=== PATIENT | female | born 1955 | race Asian ===

== ENCOUNTER 2016-08-22 14:09 | Emergency (ER) | payer OTHER ==
[~2016-08-22] VITALS: Wt 74.0 kg
[~2016-08-22 14:09] MED LIST: ASPI-664 PO; ATEN50TA PO; DICY20TA59 PO; HYD25 PO; LOSA50TA6 PO; METF1000 PO
[2016-08-22] MEDS ORDERED: SODIUM CHLORIDE 0.9% 1L BAG IV* STA (19:18)
[2016-08-22] MEDS ORDERED: ACETAMINOPHEN 325 MG TAB PO STA (19:18)
[2016-08-22] MEDS ORDERED: VANCOMYCIN 1 GM (PMX) 250 ML IVPB SCH (19:30)
[2016-08-22] MEDS ORDERED: PIPER-TAZO 3.375 GM IV (PMX) 100 ML IVPB ONE (19:30)
--- NOTE | 2016-08-22 19:30 | ERA ---
ER Documentation Chief Complaint Date/Time DATE: 08/22/16 TIME: 19:27 Chief Complaint PRODUCTIVE COUGH X 2 DAYS; CHEMO PT HPI Patient is a 61-year-old female who reports a productive cough for the last 2 days with nausea, vomiting, and diarrhea. She is a prior chemo patient however she has not received chemo since November. Her chemo was for colon cancer. She denies any abdominal pain. She has not been around anyone who has been sick. She has not traveled out of the country. She has not been on any recent antibiotics. She says the cough is productive of a slight yellowish phlegm. She denies any chest pain, swelling of the extremities, sore throat, otalgia, or rhinorrhea. Nothing seems to make this better or worse. She does describe diffuse myalgias with a slight headache as well. She denies any dysuria, hematuria, flank, or back pain. Denies any abnormal bleeding, bruises or rashes. And the remainder review systems are negative. ROS All systems reviewed and are negative except as per history of present illness. Medications Home Meds Reported Medications Dicyclomine Hcl* (Bentyl*) 20 Mg Tablet, 20 MG PO QID Y for PAIN, TAB 01/26/16 Hydrochlorothiazide* (Hydrochlorothiazide*) 25 Mg Tab, 25 MG PO DAILY, #30 TAB 01/26/16 Losartan Potassium* (Losartan Potassium*) 50 Mg Tablet, 50 MG PO DAILY, TAB 03/12/15 Metformin Hcl* (Metformin Hcl*) 1,000 Mg Tablet, 1000 MG PO BID, TAB 03/12/15 Atenolol* (Atenolol*) 50 Mg Tablet, 50 MG PO DAILY, TAB 03/12/15 Aspirin* (Aspirin* EC) 81 Mg Tablet.dr, 81 MG PO DAILY, TAB 03/12/15 Allergies Allergies: Coded Allergies: No Known Drug Allergy (Unverified Allergy, Unknown, 01/26/16) ADVERSE REACTION TO A CHEMO DRUG IN PAST- COULD NOT REMEMBER WHICH MEDICATION PMhx/Soc History of Surgery: Yes ( Colon resection 04/2015, oophorectomy, tonsillectomy ) Anesthesia Reaction: No Hx Neurological Disorder: No Hx Respiratory Disorders: No Hx Cardiac Disorders: Yes (HTN ) Hx Psychiatric Problems: No Hx Miscellaneous Medical Probl: Yes (DM) Hx Alcohol Use: No Hx Substance Use: No Hx Tobacco Use: No Smoking Status: Never smoker Physical Exam Vitals Vital Signs Date Time Temp Pulse Resp B/P Pulse Ox O2 Delivery O2 Flow Rate FiO2 08/22/16 21:00 98.5 71 16 106/65 100 Nasal Cannula 2.0 08/22/16 19:27 Nasal Cannula 2 08/22/16 19:10 Nasal Cannula 2.0 08/22/16 18:46 100.7 68 20 100/57 97 Room Air 08/22/16 14:14 98.1 66 18 109/59 96 Physical Exam Const: [] Well-developed well-nourished female sitting on the bed, nontoxic in appearance Head: Atraumatic normocephalic Eyes: Normal Conjunctiva, pupils equally round reactive to light, extraocular motions are intact ENT: Normal External Ears, Nose and Mouth., Posterior pharynx is normal without any erythema, petechia, or purulent Neck: Full range of motion..~ No meningismus. Resp: Clear to auscultation bilaterally, no tachypnea, retractions, or nasal flaring noted, no crackles Cardio: Regular rate and rhythm, no murmurs Abd: Soft, non tender, non distended. Normal bowel sounds no masses, rebound , or guarding Skin: No petechiae or rashes Back: No midline or flank tenderness Ext: No cyanosis, or edema, no calf pain Neur: Awake and alert, oriented 3 with a GCS of 15 and nonfocal Psych: Normal Mood and Affect Result Diagram: 08/22/16192408/22/161934 Results 24 hrs Laboratory Tests Test 08/22/16 19:23 08/22/16 19:25 08/22/16 19:35 08/22/16 20:09 Activated Partial Thromboplast Time 29.1Sec INR International Normalized Ratio 0.90 Prothrombin Time 12.1Sec Prothrombin Time Ratio 0.9 Basophils # 0.010^3/ul Basophils % 0.4% Eosinophils # 0.110^3/ul Eosinophils % 0.7% Hematocrit 46.1% Hemoglobin 15.1g/dl Lymphocytes # 2.210^3/ul Lymphocytes % 31.4% Mean Corpuscular Hemoglobin 30.5pg Mean Corpuscular Hemoglobin Concent 32.8g/dl Mean Corpuscular Volume 93.1fl Mean Platelet Volume 9.7fl Monocytes # 1.010^3/ul Monocytes % 13.4% Neutrophils # 3.810^3/ul Neutrophils % 53.5% Nucleated Red Blood Cells # 0.010^3/ul Nucleated Red Blood Cells % 0.0/100WBC Platelet Count 28573^3/UL Red Blood Count 4.9510^6/ul Red Cell Distribution Width 12.5% White Blood Count 7.110^3/ul Alanine Aminotransferase (ALT/SGPT) 66IU/L Albumin 3.8g/dl Albumin/Globulin Ratio 0.97 Alkaline Phosphatase 61IU/L Anion Gap 20 Aspartate Amino Transf (AST/SGOT) 152IU/L Blood Urea Nitrogen 29mg/dl Calcium Level 9.5mg/dl Carbon Dioxide Level 28mmol/L Chloride Level 97mmol/L Creatinine 1.19mg/dl Direct Bilirubin 0.00mg/dl Globulin 3.90g/dl Glucose Level 125mg/dl Indirect Bilirubin 0.3mg/dl Lactic Acid Level 2.1mmol/L Potassium Level 3.3mmol/L Sodium Level 142mmol/L Total Bilirubin 0.3mg/dl Total Protein 7.7g/dl Troponin I < 0.012ng/ml Urine Bacteria FEW Urine Bilirubin 1+ Urine Calcium Oxalate Crystals FEW Urine Clarity CLOUDY Urine Color YELLOW Urine Glucose NEGATIVE% Urine Hemoglobin NEGATIVE Urine Hyaline Casts MODERATE Urine Ictotest POSITIVE Urine Ketones TRACE Urine Leukocyte Esterase NEGATIVE Urine Microscopic RBC 0-2/HPF Urine Microscopic WBC 0-2/HPF Urine Nitrite NEGATIVE Urine Renal Epithelial Cells MODERATE Urine Specific [place] 1.025 Urine Squamous Epithelial Cells FEW Urine Total Protein TRACE Urine Urobilinogen 0.2 E.U./dL Urine pH 5.5 Current Medications Medications (Trade) Dose Ordered Sig/Ninfa Route PRN Reason Start Time Stop Time Status Last Admin Dose Admin Sodium Chloride (NS) 2,290 ml BOLUS OVER 2 HOURS STAT IV* 08/22/16 19:18 08/22/16 19:21 DC 08/22/16 19:53 Acetaminophen 650 mg 650 mg ONCE STAT PO 08/22/16 19:18 08/22/16 19:21 DC 08/22/16 19:54 Vancomycin HCl 250 ml @ 125 mls/hr ONCE IVPB 08/22/16 19:30 08/22/16 21:29 DC 08/22/16 21:42 Piperacillin Sod/ Tazobactam Sod (Zosyn 3.375gm/ 100 ml (Pmx)) 100 ml @ 200 mls/hr ONCE ONCE IVPB 08/22/16 19:30 08/22/16 19:59 DC 08/22/16 19:54 Procedures/MDM Differential includes but is not limited to febrile illness, pneumonia, bronchitis, viral syndrome, influenza, myalgia EKG: Rate/Rhythm: Normal Sinus Rhythm at 60 bpm without any evidence for acute ischemia, no old EKG available for comparison QRS, ST, T-waves: No changes consistent w/ acute ischemia Impression: No evidence of ischemia or arrhythmia Chest x-ray does not reveal any acute cardiopulmonary process Influenza screen is negative 20-24: Patient is hemodynamically stable. Fever has resolved. White count is normal. Lactic acid level is negative. It appears she is stable for discharge home with outpatient follow-up with her primary care physician tomorrow. Departure Diagnosis: Primary Impression: Fever Qualified Code: R50.9 - Fever, unspecified fever cause Additional Impressions: Viral syndrome Vomiting Qualified Code: R11.2 - Non-intractable vomiting with nausea, unspecified vomiting type Diarrhea Qualified Code: R19.7 - Diarrhea, unspecified type Condition: Stable Patient Instructions: Fever Control (Adult), Nausea and Vomiting-Adult, Viral Syndrome (Adult) Additional Instructions: Motrin as needed for fever and body aches. Please encourage fluids. I would start with a clear liquid diet and then move onto a bland diet as tolerated. Please follow-up with your primary care physician tomorrow for recheck. Return to the emergency department immediately for any new or worsening symptoms. CECILIA STILES Aug 22, 2016 19:30
[2016-08-22 19:50] LABS: ADD SCAN DIFF NO
[2016-08-22 19:51] LABS: INR 0.9; PROTIME 12.1 Sec (12.2-14.2); PT RATIO 0.9
[2016-08-22 19:52] LABS: PARTIAL THROMBOPLASTIN TIME 29.1 Sec (25.0-35.0)
[2016-08-22 19:54] LABS: BASOPHILS % 0.4 % (0.0-2.0); EOSINOPHILS # 0.1 10^3/ul (0.0-0.5); EOSINOPHILS % 0.7 % (0.0-7.0); HEMATOCRIT 46.1 % (37.0-47.0); HEMOGLOBIN 15.1 g/dl (12.0-16.0); LYMPHOCYTES # 2.2 10^3/ul (0.8-2.9); LYMPHOCYTES % 31.4 % (15.0-51.0); MEAN CORPUSCULAR HEMOGLOBIN 30.5 pg (29.0-33.0); MEAN CORPUSCULAR HGB CONC 32.8 g/dl (32.0-37.0); MEAN CORPUSCULAR VOLUME 93.1 fl (82.0-101.0); MEAN PLATELET VOLUME 9.7 fl (7.4-10.4); MONOCYTES % 13.4 % (0.0-11.0); NEUTROPHIL # 3.8 10^3/ul (1.6-7.5); NEUTROPHILS % 53.5 % (39.0-77.0); PLATELET COUNT 210 10^3/UL (140-415); RED BLOOD COUNT 4.95 10^6/ul (4.20-5.40); RED CELL DISTRIBUTION WIDTH 12.5 % (11.5-14.5); WHITE BLOOD COUNT 7.1 10^3/ul (4.8-10.8)
--- NOTE | 2016-08-22 20:03 | RADRPT ---
PROCEDURE: XR Chest. CLINICAL INDICATION: Cough. Sepsis. TECHNIQUE: Single frontal view. COMPARISON: 01/26/2016. FINDINGS: The lungs are clear. The nasogastric tube has been removed. The heart size is normal. There is calcification in the aorta consistent with atherosclerosis. There is no pleural effusion. There is no pneumothorax. IMPRESSION: 1. Nasogastric tube removed. 2. Clear lungs. 3. Atherosclerosis. RPTAT: QQ .Artemio Niño MD, MD Date Time Electronically viewed and signed by .Artemio Niño MD, MD on 08/22/2016 20:02 .R/
[2016-08-22 20:04] LABS: ALBUMIN 3.8 g/dl (3.3-4.9); CHLORIDE 97 mmol/L (97-110); POTASSIUM 3.3 mmol/L (3.5-5.1); SODIUM 142 mmol/L (135-144)
[2016-08-22 20:06] LABS: BILIRUBIN,INDIRECT 0.3 mg/dl (0-1.1); BILIRUBIN,TOTAL 0.3 mg/dl (0.2-1.3); CREATININE 1.19 mg/dl (0.44-1.00)
[2016-08-22 20:07] LABS: ALANINE AMINOTRANSFERASE 66 IU/L (13-69); ALBUMIN/GLOBULIN RATIO 0.97; ALKALINE PHOSPHATASE 61 IU/L (42-121); ANION GAP 20 (8-16); ASPARTATE AMINO TRANSFERASE 152 IU/L (15-46); BLOOD UREA NITROGEN 29 mg/dl (7-20); CARBON DIOXIDE 28 mmol/L (21-31); GLUCOSE 125 mg/dl (70-220); TOTAL PROTEIN 7.7 g/dl (6.1-8.1)
[2016-08-22 20:08] LABS: CALCIUM 9.5 mg/dl (8.4-10.2)
[2016-08-22 20:28] LABS: ADD UMIC YES; URINE BILIRUBIN (Dip) 1+ (NEGATIVE); URINE BLOOD (Dip) NEGATIVE (NEGATIVE); URINE COLOR YELLOW (YELLOW); URINE GLUCOSE (Dip) NEGATIVE (NEGATIVE); URINE KETONES (Dip) TRACE (NEGATIVE); URINE LEUKOCYTE ESTERASE (Dip) NEGATIVE (NEGATIVE); URINE NITRITE (Dip) NEGATIVE (NEGATIVE); URINE TOTAL PROTEIN (Dip) TRACE (NEGATIVE); URINE UROBILINOGEN (Dip) 0.2 E.U./dL (0.1-1.0)
[2016-08-22 20:38] LABS: TROPONIN-I < 0.012 ng/ml (0.00-0.12)
[2016-08-22 20:52] LABS: BACTERIA,URINE FEW
[2016-08-22 20:53] LABS: RENAL EPITHELIAL CELLS,URINE MODERATE; SQUAMOUS EPITHELIAL CELL,UR FEW; URINE RBCS 0-2 /HPF (0)
[2016-08-22 20:54] LABS: ICTOTEST POSITIVE (NEGATIVE)
[2016-08-22 21:00] VITALS: TEMP 98.5
[2016-08-22] MEDS ORDERED: ONDA4TAB8 PO (22:28)
[2016-08-22 22:37] VITALS: BP 126/58; PULSE 67; RESP 16
== END 2016-08-22 22:38 | disposition home or self-care (01) ==
LOC: E/R 14:09
DX: R50.9 Fever, unspecified (principal); R11.2 Nausea with vomiting, unspecified; R19.7 Diarrhea, unspecified; R06.02 Shortness of breath; E11.9 Type 2 diabetes mellitus without complications; I10 Essential (primary) hypertension; B34.9 Viral infection, unspecified; Z85.038 Personal history of other malignant neoplasm of large intestine; Z79.82 Long term (current) use of aspirin
CPT/HCPCS: 36415; 71010; 80053; 81001; 83605; 84484; 85025; 85610; 85730; 87040; 87086; 87400; 93005; 96374; 96375; J2543; J3370; J7030; Z7502; Z7610; 81003

== ENCOUNTER 2016-12-30 13:19 | Inpatient (IN) | payer OTHER ==
[~2016-12-30] VITALS: Ht 154.9 cm; Wt 80.0 kg
[~2016-12-30 13:19] MED LIST changes: +ONDA4TAB8 PO
[2016-12-30] MEDS ORDERED: NITROGLYCERIN 2% 1 GM OINT PKT TD STA (13:31)
[2016-12-30] MEDS ORDERED: ASPIRIN 81 MG TAB PO STA (13:31)
[2016-12-30 13:53] LABS: BASOPHIL # 0.1 10^3/ul (0.0-0.1); BASOPHILS % 0.8 % (0.0-2.0); EOSINOPHILS # 0.3 10^3/ul (0.0-0.5); EOSINOPHILS % 3.4 % (0.0-7.0); HEMATOCRIT 40.7 % (37.0-47.0); LYMPHOCYTES # 3.2 10^3/ul (0.8-2.9); MEAN CORPUSCULAR HGB CONC 34.4 g/dl (32.0-37.0); MEAN CORPUSCULAR VOLUME 93.1 fl (82.0-101.0); MEAN PLATELET VOLUME 9.8 fl (7.4-10.4); MONOCYTES % 11.6 % (0.0-11.0); NEUTROPHIL # 4.1 10^3/ul (1.6-7.5); PLATELET COUNT 239 10^3/UL (140-415); RED BLOOD COUNT 4.37 10^6/ul (4.20-5.40); WHITE BLOOD COUNT 8.7 10^3/ul (4.8-10.8)
[2016-12-30] MEDS ORDERED: NITROGLYCERIN (SL) 0.4 MG TAB SL PRN ×2 (14:00→16:30)
[2016-12-30 14:13] LABS: INR 0.96; PROTIME 12.8 Sec (12.2-14.2)
[2016-12-30 14:14] LABS: PARTIAL THROMBOPLASTIN TIME 28.6 Sec (25.0-35.0)
[2016-12-30 14:16] LABS: ANION GAP 20 (8-16); BLOOD UREA NITROGEN 24 mg/dl (7-20); CALCIUM 10.3 mg/dl (8.4-10.2); CARBON DIOXIDE 29 mmol/L (21-31); CHLORIDE 100 mmol/L (97-110); CREATINE KINASE 67 IU/L (23-200); CREATININE 0.81 mg/dl (0.44-1.00); GLUCOSE 183 mg/dl (70-220); POTASSIUM 3.7 mmol/L (3.5-5.1); SODIUM 145 mmol/L (135-144)
--- NOTE | 2016-12-30 14:19 | RADRPT ---
PROCEDURE: Chest Radiograph. CLINICAL INDICATION: Chest pain TECHNIQUE: Single frontal chest radiograph. COMPARISON: Chest radiograph 08/22/2016 FINDINGS: Heart size is within normal limits. Atherosclerotic calcifications are present. No infiltrate or effusion is seen. The bones are intact. IMPRESSION: 1. No evidence of acute cardiopulmonary disease. 2. Atherosclerotic vascular disease. RPTAT: KK .Aurelio Anglin MD, MD Date Time Electronically viewed and signed by .Aurelio Anglin MD, MD on 12/30/2016 14:19 .B/
[2016-12-30] MEDS ORDERED: ATEN100T PO (14:26)
[2016-12-30 14:28] LABS: CK-MB 0.82 ng/ml (0.0-2.4)
[2016-12-30 14:30] LABS: TROPONIN-I < 0.012 ng/ml (0.00-0.12)
[2016-12-30] MEDS ORDERED: ONDANSETRON 4 MG INJ IV PRN ×2 (15:30→16:30)
[2016-12-30] MEDS ORDERED: ACETAMINOPHEN 325 MG TAB PO PRN ×2 (15:30→16:30)
--- NOTE | 2016-12-30 16:27 | ERA ---
ER Documentation Chief Complaint Date/Time DATE: 12/30/16 TIME: 16:25 Chief Complaint CHEST PAIN X 1 HOUR , LT SIDE NECK PAIN X 3 DAYS , HEADCAHE HPI Patient is a 61-year-old female with coronary disease, hypertension, CHF, and diabetes who presents with chest pain. She started with chest pain 1 hour prior. She has chest pain with movement and palpation and nitroglycerin did help a little. She has left-sided ear pain as well. She said the pain is constant. She says that her vice president of finance is Dr. Colin who is planning to do a cardiac catheterization within a few days but her chest pain started so she came to the emergency department. ROS All systems reviewed and are negative except as per history of present illness. Medications Home Meds Reported Medications Atenolol* (Atenolol*) 100 Mg Tablet, 100 MG PO DAILY, #30 TAB 12/30/16 Dicyclomine Hcl* (Bentyl*) 20 Mg Tablet, 20 MG PO QID Y for PAIN, TAB 01/26/16 Hydrochlorothiazide* (Hydrochlorothiazide*) 25 Mg Tab, 25 MG PO DAILY, #30 TAB 01/26/16 Losartan Potassium* (Losartan Potassium*) 50 Mg Tablet, 50 MG PO DAILY, TAB 03/12/15 Metformin Hcl* (Metformin Hcl*) 1,000 Mg Tablet, 1000 MG PO BID, TAB 03/12/15 Aspirin* (Aspirin* EC) 81 Mg Tablet.dr, 81 MG PO DAILY, TAB 03/12/15 Discontinued Reported Medications Atenolol* (Atenolol*) 50 Mg Tablet, 50 MG PO DAILY, TAB 03/12/15 Discontinued Scripts Ondansetron Hcl* (Zofran*) 4 Mg Tablet, 4 MG PO Q8H Y for NAUSEA AND/OR VOMITING , #20 TAB 0 Refills Prov:CECILIA STILES 08/22/16 Allergies Allergies: Coded Allergies: No Known Drug Allergy (Unverified Allergy, Unknown, 12/30/16) ADVERSE REACTION TO A CHEMO DRUG IN PAST- COULD NOT REMEMBER WHICH MEDICATION PMhx/Soc History of Surgery: Yes ( Colon resection 04/2015, oophorectomy, tonsillectomy ) Anesthesia Reaction: No Hx Neurological Disorder: No Hx Respiratory Disorders: No Hx Cardiac Disorders: Yes (HTN ) Hx Psychiatric Problems: No Hx Miscellaneous Medical Probl: Yes (DM) Hx Alcohol Use: No Hx Substance Use: No Hx Tobacco Use: No FmHx Family History: coronary disease Physical Exam Vitals Vital Signs Date Time Temp Pulse Resp B/P Pulse Ox O2 Delivery O2 Flow Rate FiO2 12/30/16 13:21 98.2 71 18 129/66 97 Physical Exam Const: Moderate distress secondary to pain Head: Atraumatic Eyes: Normal Conjunctiva ENT: Normal External Ears, Nose and Mouth. Neck: Full range of motion..~ No meningismus. Resp: Clear to auscultation bilaterally Cardio: Regular rate and rhythm, no murmurs Abd: Soft, non tender, non distended. Normal bowel sounds Skin: No petechiae or rashes Back: No midline or flank tenderness Ext: No cyanosis, or edema Neur: Awake and alert Psych: Normal Mood and Affect Result Diagram: 12/30/16 1345 12/30/16 1345 Results 24 hrs Laboratory Tests Test 12/30/16 13:45 White Blood Count 8.710^3/ul Red Blood Count 4.3710^6/ul Hemoglobin 14.0g/dl Hematocrit 40.7% Mean Corpuscular Volume 93.1fl Mean Corpuscular Hemoglobin 32.0pg Mean Corpuscular Hemoglobin Concent 34.4g/dl Red Cell Distribution Width 12.0% Platelet Count 21226^3/UL Mean Platelet Volume 9.8fl Neutrophils % 47.0% Lymphocytes % 37.0% Monocytes % 11.6% Eosinophils % 3.4% Basophils % 0.8% Nucleated Red Blood Cells % 0.0/100WBC Neutrophils # 4.110^3/ul Lymphocytes # 3.210^3/ul Monocytes # 1.010^3/ul Eosinophils # 0.310^3/ul Basophils # 0.110^3/ul Nucleated Red Blood Cells # 0.010^3/ul Prothrombin Time 12.8Sec Prothrombin Time Ratio 1.0 INR International Normalized Ratio 0.96 Activated Partial Thromboplast Time 28.6Sec Sodium Level 145mmol/L Potassium Level 3.7mmol/L Chloride Level 100mmol/L Carbon Dioxide Level 29mmol/L Anion Gap 20 Blood Urea Nitrogen 24mg/dl Creatinine 0.81mg/dl Glucose Level 183mg/dl Calcium Level 10.3mg/dl Creatine Kinase 67IU/L Creatine Kinase Index 1.2 Creatinine Kinase MB (Mass) 0.82ng/ml Troponin I < 0.012ng/ml Current Medications Medications (Trade) Dose Ordered Sig/Ninfa Route PRN Reason Start Time Stop Time Status Last Admin Dose Admin Aspirin (Aspirin) 162 mg ONCE STAT PO 12/30/16 13:31 12/30/16 13:33 DC 12/30/16 14:07 Nitroglycerin (Nitroglycerin 2% Oint) 1 inch ONCE STAT TD 12/30/16 13:31 12/30/16 13:33 DC 12/30/16 14:08 Nitroglycerin (Nitroglycerin (Sl Tab) 0.4 Mg) 1 tab Q5M UP TO 3 DOSES PRN SL CHEST PAIN 12/30/16 14:00 12/30/16 14:09 Ondansetron HCl (Zofran Inj) 4 mg ER BRIDGE PRN IV NAUSEA AND/OR VOMITING 12/30/16 15:30 12/31/16 15:29 Acetaminophen (Tylenol Tab) 650 mg ER BRIDGE PRN PO MILD PAIN/FEVER 12/30/16 15:30 12/31/16 15:29 IV Flush (NS 3 ml) 3 ml PER PROTOCOL IV 12/30/16 16:30 UNV Ondansetron HCl (Zofran Inj) 4 mg Q6H PRN IV NAUSEA AND/OR VOMITING 12/30/16 16:30 UNV Aspirin (Aspirin) 81 mg DAILY PO 12/31/16 09:00 UNV Nitroglycerin (Nitroglycerin (Sl Tab) 0.4 Mg) 1 tab Q5M PRN SL CHEST PAIN 12/30/16 16:30 UNV Acetaminophen (Tylenol Tab) 650 mg Q6H PRN PO PAIN LEVEL 1-3 OR FEVER 12/30/16 16:30 UNV Acetaminophen/ Hydrocodone Bitart ([place] (5/325)) 1 tab Q6H PRN PO PAIN LEVEL 4-6 12/30/16 16:30 UNV Magnesium Hydroxide (Milk Of Mag) 30 ml DAILY PRN PO CONSTIPATION 12/30/16 16:30 UNV Bisacodyl (Dulcolax) 5 mg DAILY PRN PO CONSTIPATION 12/30/16 16:30 UNV Famotidine (Pepcid) 20 mg Q12 PO 12/30/16 21:00 UNV Enoxaparin Sodium (Lovenox) 40 mg DAILY SC 12/31/16 09:00 UNV Procedures/MDM EKG read by me: Rate/Rhythm: Regular rate and rhythm at a normal rate Intervals: Normal Impression: No evidence of ischemia or arrhythmia Chest x-ray shows no pneumonia or pneumothorax per radiology. Patient is a 61-year-old female with multiple cardiac risk factors who presents with chest pain. I do believe the patient requires admission to the hospital for further evaluation for acute coronary syndrome. I doubt pneumonia, pneumothorax, pulmonary embolism, or aortic dissection. The patient will be admitted to a telemetry bed to the care of Dr. Ewing. Departure Diagnosis: Primary Impression: Chest pain Condition: NISHI Morataya MD Dec 30, 2016 16:27
[2016-12-30] MEDS ORDERED: HYDROCODONE/APAP (5/325) TAB PO PRN (16:30)
[2016-12-30] MEDS ORDERED: NACL 0.9% 3 ML SYG IV SCH (16:30)
[2016-12-30] MEDS ORDERED: BISACODYL (EC) 5 MG TAB PO PRN (16:30)
[2016-12-30] MEDS ORDERED: MAGNESIUM HYDROXIDE 30ML CUP PO PRN (16:30)
--- NOTE | 2016-12-30 16:39 | HP ---
Date/Time of Note Date/Time of Note DATE: 12/30/16 TIME: 16:33 Assessment/Plan VTE Prophylaxis VTE Prophylaxis Intervention: LMWH Assessment/Plan Chief Complaint/Hosp Course 1. Chest pain. Reported positive stress test as outpatient. The patient will be continued on aspirin. Cardiology consult will be obtained. A 2D echocardiogram will be ordered. 2. Headache. Etiology unclear. Will obtain a CT scan to evaluate for any underlying intracranial pathology. 3. Essential hypertension. The patient's home antihypertensives will be resumed. The patient will also be started on PRN antihypertensives for any systolic blood pressure readings greater than 160 mmHg. 4. Type 2 diabetes mellitus. The patient's metformin will be put on hold. The patient will be started on sliding scale insulin along with pre-meal insulin and basal insulin. Hemoglobin A1c will be obtained to evaluate the blood glucose control over the past few weeks. 5. Colon cancer. Status post resection and chemotherapy. Follows up with Dr. Mata as outpatient. 6. Obesity. BMI of 32.3 kg/m. Weight reduction would be advised. Fasting lipid panel will be obtained. Plan: The patient will be admitted to inpatient telemetry floor. The patient will be started on a carbohydrate controlled diet. The patient will be started on DVT prophylaxis and gastrointestinal prophylaxis. The patient will remain a full code. Activities will be as tolerated. The rest of the patient's management will be based on the clinical course, input from consultants, and the results of diagnostic studies. Based on the patient's clinical presentation, she most probably requires at least 2 midnights' stay for further management and evaluation of her clinical presentation. The case and management of this patient was fully discussed with Dr. Ewing. Problems: HPI/ROS Admit Date/Time Admit Date/Time Hx of Present Illness Reason for Admission: Chest Pain. Consultants 1. Aaron Flores MD, Cardiology. This is a 61-year-old [place] female with past medical history of essential hypertension, type 2 diabetes mellitus, colon cancer status post resection and chemotherapy, and obesity who has a strong family history of coronary artery disease. The patient also had a reported positive stress test as outpatient in October 2016. The patient follows up with Dr. Brady as outpatient for her heart problems. The patient started having chest pain the morning on 12/30/2016. The patient verbalized the chest pain as sharp with radiation to the neck with associated diaphoresis and nausea. The patient denied any dyspnea or orthopnea. The patient denied any calf pain or bilateral lower extremity edema. Patient denied any fevers, chills, cough, abdominal pain, diarrhea, dysuria, or hematuria. The patient denied any recent long travels. The patient verbalized that she has been compliant with all her home medications. The patient also complained about left-sided neck pain that has been radiating to the occipital area for the past few days. The patient denied any blurred vision. She denied any focal weakness. The emergency room, the patient underwent atrial lead EKG that showed normal sinus rhythm. The patient's initial troponins were negative. The patient's chest x-ray was negative for any acute cardiopulmonary findings. The patient was treated with oral aspirin and nitroglycerin transdermal patch in the emergency room. ROS Constitutional: fatigue Eyes: no complaints ENT: no complaints Respiratory: no complaints Cardiovascular: chest pain Gastrointestinal: nausea Genitourinary: no complaints Musculoskeletal: no complaints Skin: no complaints Neurologic: headache Endocrine: no complaints Lymphatic: no complaints Psychological: no complaints Immunologic: no complaints PMH/Family/Social Past Medical History Medical History: diabetes, hypertension, other (Colon cancer status post resection and chemotherapy) Past Surgical History Past Surgical Hx: bowel resection, other (Tonsillectomy) Family History Significant Family History: heart disease (To have her sons from heart disease. Mother had heart disease.) Social History The patient lives at home. Alcohol Use: none Smoking Status: Never smoker Drug Use: none Exam/Review of Systems Vital Signs Vitals Vital Signs Date Time Temp Pulse Resp B/P Pulse Ox O2 Delivery O2 Flow Rate FiO2 12/30/16 13:21 98.2 71 18 129/66 97 Exam Exam General: Obese 61 year-old female lying in bed in no apparent distress. HEENT: Normocephalic, atraumatic. Eyes: Anicteric sclerae, conjunctivae clear. ENT: Nasal septum midline, oral mucosa moist. Neck supple, no JVD noticed. Respiratory: Bilaterally clear breath sounds. No use of accessory muscles of respiration. No adventitious breath sounds. Cardiovascular: S1, S2 heard. No murmurs or gallops. Abdomen: Soft, nontender, and nondistended. Bowel sounds positive in all 4 quadrants. Genitourinary: Deferred. Extremities: No cyanosis, no clubbing, no edema. Peripheral pulses palpable. Neurologic: Cranial nerves II through XII grossly intact. The patient is awake, alert, and oriented. Skin: Normal skin turgor. No skin rashes. Labs Result Diagram: 12/30/16 1345 12/30/16 1345 Medications Medications Current Medications Ondansetron HCl (Zofran Inj) 4 mg Q6H PRN IV NAUSEA AND/OR VOMITING; Start at 16:30; Status UNV Aspirin (Aspirin) 81 mg DAILY PO ; Start 12/31/16 at 09:00; Status UNV Nitroglycerin (Nitroglycerin (Sl Tab) 0.4 Mg) 1 tab Q5M PRN SL CHEST PAIN; Start 12/30/16 at 16:30; Status UNV Acetaminophen (Tylenol Tab) 650 mg Q6H PRN PO PAIN LEVEL 1-3 OR FEVER; Start at 16:30; Status UNV Acetaminophen/ Hydrocodone Bitart ([place] (5/325)) 1 tab Q6H PRN PO PAIN LEVEL 4 -6; Start 12/30/16 at 16:30; Status UNV Magnesium Hydroxide (Milk Of Mag) 30 ml DAILY PRN PO CONSTIPATION; Start at 16:30; Status UNV Bisacodyl (Dulcolax) 5 mg DAILY PRN PO CONSTIPATION; Start 12/30/16 at 16:30; Status UNV Famotidine (Pepcid) 20 mg Q12 PO ; Start 12/30/16 at 21:00; Status UNV Enoxaparin Sodium (Lovenox) 40 mg DAILY SC ; Start 12/31/16 at 09:00; Status UNV Atenolol (Tenormin) 100 mg DAILY PO ; Start 12/31/16 at 09:00; Status UNV Hydrochlorothiazide (Hydrochlorothiazide) 25 mg DAILY PO ; Start 12/31/16 at 09: 00; Status UNV Losartan Potassium (Cozaar) 50 mg DAILY PO ; Start 12/31/16 at 09:00; Status UNV Miscellaneous Information (* Miscellaneous Pharmacy Order) Discontinue current oral sulfonylur... ONCE ONCE XX ; Start 12/30/16 at 16:30; Stop 12/30/16 at 16: 31; Status UNV Diagnostic Test (Pha) (Accu-Chek) 1 XX ; Start 12/31/16 at 02:00; Status UNV Insulin Glargine (Lantus) 16 unit DAILY@08 SC ; Start 12/31/16 at 08:00; Status UNV Miscellaneous Information (* Miscellaneous Pharmacy Order) HYPOGLYCEMIA PROTOCOL w... ONCE ONCE XX ; Start 12/30/16 at 16:30; Stop 12/30/16 at 16:31; Status UNV Miscellaneous Information (* Miscellaneous Pharmacy Order) Discontinue all previ... ONCE ONCE XX ; Start 12/30/16 at 16:30; Stop 12/30/16 at 16:31; Status UNV Procedures Procedures CXR IMPRESSION: 1. No evidence of acute cardiopulmonary disease. 2. Atherosclerotic vascular disease. JUAN JOSE CHOU NP Dec 30, 2016 16:39
[2016-12-30] MEDS ORDERED: hydrALAzine 20 MG INJ IV PRN (17:00)
--- NOTE | 2016-12-30 17:44 | RADRPT ---
PROCEDURE: CT brain without contrast CLINICAL INDICATION: Headache with radiation TECHNIQUE: CT of the brain without contrast was performed on a multidetector CT scanner, with multi planar reformats. One or more of the following dose reduction techniques were used: Automated expos ure control, adjustment in mA and / or kV according to patient size, use of iterative reconstructive technique. CTDIvol = 45 mGy; DLP = 630 mGy-cm. COMPARISON: MRI brain 06/01/2015 FINDINGS: No acute intracranial hemorrhage is identified. No extra-axial fluid collection is seen. The ventricles and sulci are mildly enlarged compatible with volume loss. There is a cluster of small cystic foci in the medial right cerebellum next to the fourth ventricle and adjacent right middle cerebellar peduncle, and small cystic foci in the medial right temporal/in ferior basal ganglia region. These are better characterized on the prior MRI with benign cystic rajni earances and do not appear significantly changed. The cystic foci in the right cerebellar/middle ce rebellar peduncle region are most likely dilated perivascular spaces. The cystic foci at the right temporal/inferior basal ganglia region may be choroid fissure cysts and / or dilated perivascular s paces. There is no significant mass effect and no midline shift is identified. Osseous structures are unremarkable. Mastoid air cells and imaged paranasal sinuses grossly clear. IMPRESSION: 1. No evidence of acute intracranial pathology. 2. Small cystic foci in the medial right cerebellum / right middle cerebellar peduncle, without sig nificant change since the prior MRI from 06/01/2015, most likely dilated perivascular spaces. 3. Small cystic foci at the medial right temporal/inferior basal ganglia region, also without signi ficant change, which may be choroid fissure cysts and/or dilated perivascular spaces. 4. Mild volume loss. RPTAT: VV .Moose Hernandez MD, Date Time Electronically viewed and signed by .Moose Hernandez MD, on 12/30/2016 17:44 .O/
[2016-12-30 19:15] VITALS: Ht 154.9 cm; Wt 80.0 kg
[2016-12-30 20:27] VITALS: BP 130/60; RESP 18
[2016-12-30 20:33] VITALS: PULSE 63
[2016-12-30] MEDS: INSULIN ASPART [NOVOLOG] 3 ML PEN SC SCH (20:36)
[2016-12-30] MEDS: FAMOTIDINE 20 MG TAB PO SCH (20:36)
--- NOTE | 2016-12-30 22:58 | CONS ---
Date/Time of Note Date/Time of Note DATE: 12/30/16 TIME: 22:58 Consultation Date/Type/Reason Admit Date/Time Eyes: no complaints ENT: no complaints Respiratory: no complaints Cardiovascular: chest pain Gastrointestinal: nausea Genitourinary: no complaints Musculoskeletal: no complaints Skin: no complaints Neurologic: headache Lymphatic: no complaints Psychological: no complaints Immunologic: no complaints Past Medical History Medical History: diabetes, hypertension, other (Colon cancer status post resection and chemotherapy) Past Surgical History Past Surgical Hx: bowel resection, other (Tonsillectomy) Social History Alcohol Use: none Smoking Status: Never smoker Drug Use: none Exam/Review of Systems Vital Signs Vitals Vital Signs Date Time Temp Pulse Resp B/P Pulse Ox O2 Delivery O2 Flow Rate FiO2 12/30/16 20:33 63 12/30/16 20:27 97.3 18 130/60 95 12/30/16 18:54 Room Air 12/30/16 16:34 2 Results Result Diagram: 12/30/16 1345 12/30/16 1345 Results 24 hrs Laboratory Tests Test 12/30/16 13:45 12/30/16 20:35 White Blood Count 8.7 # Red Blood Count 4.37 Hemoglobin 14.0 Hematocrit 40.7 Mean Corpuscular Volume 93.1 Mean Corpuscular Hemoglobin 32.0 Mean Corpuscular Hemoglobin Concent 34.4 Red Cell Distribution Width 12.0 Platelet Count 239 Mean Platelet Volume 9.8 Neutrophils % 47.0 Lymphocytes % 37.0 Monocytes % 11.6 H Eosinophils % 3.4 Basophils % 0.8 Nucleated Red Blood Cells % 0.0 Neutrophils # 4.1 Lymphocytes # 3.2 H Monocytes # 1.0 H Eosinophils # 0.3 Basophils # 0.1 Nucleated Red Blood Cells # 0.0 Prothrombin Time 12.8 Prothrombin Time Ratio 1.0 INR International Normalized Ratio 0.96 Activated Partial Thromboplast Time 28.6 Sodium Level 145 H Potassium Level 3.7 Chloride Level 100 Carbon Dioxide Level 29 Anion Gap 20 H Blood Urea Nitrogen 24 H Creatinine 0.81 Glucose Level 183 Hemoglobin A1c 7.7 H Calcium Level 10.3 H Creatine Kinase 67 Creatine Kinase Index 1.2 Creatinine Kinase MB (Mass) 0.82 Troponin I < 0.012 Vitamin D 1,25-Dihydroxy 44.7 Thyroid Stimulating Hormone (TSH) 6.160 H Free Thyroxine 1.08 Bedside Glucose 170 Medications Medications Current Medications Ondansetron HCl (Zofran Inj) 4 mg Q6H PRN IV NAUSEA AND/OR VOMITING; Start at 16:30 Aspirin (Aspirin) 81 mg DAILY PO ; Start 12/31/16 at 09:00 Nitroglycerin (Nitroglycerin (Sl Tab) 0.4 Mg) 1 tab Q5M PRN SL CHEST PAIN; Start 12/30/16 at 16:30 Acetaminophen (Tylenol Tab) 650 mg Q6H PRN PO PAIN LEVEL 1-3 OR FEVER; Start at 16:30 Acetaminophen/ Hydrocodone Bitart ([place] (5/325)) 1 tab Q6H PRN PO PAIN LEVEL 4 -6; Start 12/30/16 at 16:30 Magnesium Hydroxide (Milk Of Mag) 30 ml DAILY PRN PO CONSTIPATION; Start at 16:30 Bisacodyl (Dulcolax) 5 mg DAILY PRN PO CONSTIPATION; Start 12/30/16 at 16:30 Famotidine (Pepcid) 20 mg Q12 PO Last administered on 12/30/16t 20:36; Admin Dose 20 MG; Start 12/30/16 at 21:00 Enoxaparin Sodium (Lovenox) 40 mg DAILY SC ; Start 12/31/16 at 09:00 Atenolol (Tenormin) 100 mg DAILY PO ; Start 12/31/16 at 09:00 Hydrochlorothiazide (Hydrochlorothiazide) 25 mg DAILY PO ; Start 12/31/16 at 09: 00 Losartan Potassium (Cozaar) 50 mg DAILY PO ; Start 12/31/16 at 09:00 Diagnostic Test (Pha) (Accu-Chek) 1 ea 02 XX ; Start 12/31/16 at 02:00 Insulin Glargine (Lantus) 16 unit DAILY@08 SC ; Start 12/31/16 at 08:00 Hydralazine HCl (Apresoline) 10 mg Q6H PRN IV SBP>160; Start 12/30/16 at 17:00 DORON AKHTAR MD Dec 30, 2016 22:58
[2016-12-31] VITALS (12 sets, daily range): BP systolic 110–127; BP diastolic 54–74; PULSE 55–79; RESP 16–18
[2016-12-31] MEDS: ACCU-CHEK XX SCH (02:00)
[2016-12-31 02:22] LABS: CREATINE KINASE 48 IU/L (23-200)
[2016-12-31 02:36] LABS: CK-MB 0.69 ng/ml (0.0-2.4); TROPONIN-I < 0.012 ng/ml (0.00-0.12)
[2016-12-31 07:41] LABS: BASOPHIL # 0.1 10^3/ul (0.0-0.1); BASOPHILS % 1.1 % (0.0-2.0); EOSINOPHILS # 0.3 10^3/ul (0.0-0.5); EOSINOPHILS % 3.8 % (0.0-7.0); HEMATOCRIT 39.2 % (37.0-47.0); HEMOGLOBIN 13.2 g/dl (12.0-16.0); LYMPHOCYTES # 2.8 10^3/ul (0.8-2.9); LYMPHOCYTES % 37.2 % (15.0-51.0); MEAN CORPUSCULAR HEMOGLOBIN 31.3 pg (29.0-33.0); MEAN CORPUSCULAR HGB CONC 33.7 g/dl (32.0-37.0); MEAN CORPUSCULAR VOLUME 92.9 fl (82.0-101.0); MEAN PLATELET VOLUME 10.1 fl (7.4-10.4); MONOCYTE # 0.8 10^3/ul (0.3-0.9); MONOCYTES % 10.7 % (0.0-11.0); NEUTROPHIL # 3.5 10^3/ul (1.6-7.5); NEUTROPHILS % 47.1 % (39.0-77.0); PLATELET COUNT 218 10^3/UL (140-415); RED BLOOD COUNT 4.22 10^6/ul (4.20-5.40); RED CELL DISTRIBUTION WIDTH 12.1 % (11.5-14.5); WHITE BLOOD COUNT 7.4 10^3/ul (4.8-10.8)
[2016-12-31] MEDS: ASPIRIN 81 MG TAB PO SCH (08:55)
[2016-12-31] MEDS: HYDROCHLOROTHIAZIDE 25 MG TAB PO SCH (08:55)
[2016-12-31] MEDS: FAMOTIDINE 20 MG TAB PO SCH ×2 (08:55→21:03)
[2016-12-31] MEDS: ATENOLOL 100 MG TAB PO SCH (08:55)
[2016-12-31] MEDS: LOSARTAN 50 MG TAB PO SCH (08:56)
[2016-12-31] MEDS: ENOXAPARIN 40 MG/0.4 ML SYG SC SCH (08:57)
[2016-12-31 09:06] LABS: CK-MB 0.66 ng/ml (0.0-2.4); CREATINE KINASE 66 IU/L (23-200); MAGNESIUM 1.7 mg/dl (1.7-2.5); PHOSPHORUS 4.5 mg/dl (2.5-4.9)
[2016-12-31 09:10] LABS: TROPONIN-I < 0.012 ng/ml (0.00-0.12)
[2016-12-31 09:15] LABS: ALBUMIN 3.8 g/dl (3.3-4.9); ALBUMIN/GLOBULIN RATIO 1.26; BILIRUBIN,INDIRECT 0.6 mg/dl (0-1.1); BILIRUBIN,TOTAL 0.6 mg/dl (0.2-1.3); CALCIUM 9.3 mg/dl (8.4-10.2); CREATININE 0.87 mg/dl (0.44-1.00); POTASSIUM 4.1 mmol/L (3.5-5.1); TOTAL PROTEIN 6.8 g/dl (6.1-8.1)
[2016-12-31] MEDS: INSULIN GLARGINE [LANtus] 3 ML PEN SC SCH (09:20)
[2016-12-31] MEDS: INSULIN ASPART [NOVOLOG] 3 ML PEN SC SCH ×7 (09:21→21:03)
[2016-12-31 10:19] LABS: CHOL/HDL RATIO 2.9 RATIO
--- NOTE | 2016-12-31 13:39 | PN ---
Date/Time of Note Date/Time of Note DATE: 12/31/16 TIME: 13:34 Assessment/Plan VTE Prophylaxis VTE Prophylaxis Intervention: LMWH Lines/Catheters IV C[facility]ter Type (from [facility]): Saline Lock Assessment/Plan Chief Complaint/Hosp Course 1. Chest pain. Reported positive stress test as outpatient. The patient will be continued on aspirin. Pending cardiology evaluation. Pending 2D echocardiogram results. 2. Headache. Etiology unclear. CT scan of the brain negative for any acute intracranial pathology. 3. Essential hypertension. Continue antihypertensives including PRN antihypertensives for any systolic blood pressure readings greater than 160 mmHg. 4. Type 2 diabetes mellitus. Hemoglobin A1c 7.7. Continue sliding scale insulin along with pre-meal insulin basal insulin. 5. Colon cancer. Status post resection and chemotherapy. Follows up with Dr. Mata as outpatient. 6. Obesity. BMI of 32.3 kg/m. Weight reduction was advised. 7. Fluids, electrolytes, and nutrition. Carbohydrate controlled, low- cholesterol diet. 8. DVT prophylaxis. Subcutaneous Lovenox. 9. Gastrointestinal prophylaxis. Histamine 2 receptor blockers. 10. Plan. Continue current management. Await cardiology evaluation. Case discussed with Dr. Ewing. Problems: Subjective 24 Hr Interval Summary Free Text/Dictation Denies any chest pain now. Exam/Review of Systems Vital Signs Vitals Vital Signs Date Time Temp Pulse Resp B/P Pulse Ox O2 Delivery O2 Flow Rate FiO2 12/31/16 12:00 69 12/31/16 11:56 98.2 18 126/64 97 12/30/16 18:54 Room Air 12/30/16 16:34 2 Intake and Output 12/30/16 12/30/16 12/31/16 14:59 22:59 06:59 Intake Total 400 ml Balance 400 ml Exam General: Obese 61 year-old female lying in bed in no apparent distress. HEENT: Normocephalic, atraumatic. Eyes: Anicteric sclerae, conjunctivae clear. ENT: Nasal septum midline, oral mucosa moist. Neck supple, no JVD noticed. Respiratory: Bilaterally clear breath sounds. No use of accessory muscles of respiration. No adventitious breath sounds. Cardiovascular: S1, S2 heard. No murmurs or gallops. Abdomen: Soft, nontender, and nondistended. Bowel sounds positive in all 4 quadrants. Genitourinary: Deferred. Extremities: No cyanosis, no clubbing, no edema. Peripheral pulses palpable. Neurologic: Cranial nerves II through XII grossly intact. The patient is awake, alert, and oriented. Skin: Normal skin turgor. No skin rashes. Results Result Diagram: 12/31/16 0713 12/31/16 0712 Results 24 hrs Laboratory Tests Test 12/30/16 13:45 12/30/16 20:35 12/31/16 01:39 12/31/16 02:04 White Blood Count 8.7 # Red Blood Count 4.37 Hemoglobin 14.0 Hematocrit 40.7 Mean Corpuscular Volume 93.1 Mean Corpuscular Hemoglobin 32.0 Mean Corpuscular Hemoglobin Concent 34.4 Red Cell Distribution Width 12.0 Platelet Count 239 Mean Platelet Volume 9.8 Neutrophils % 47.0 Lymphocytes % 37.0 Monocytes % 11.6 H Eosinophils % 3.4 Basophils % 0.8 Nucleated Red Blood Cells % 0.0 Neutrophils # 4.1 Lymphocytes # 3.2 H Monocytes # 1.0 H Eosinophils # 0.3 Basophils # 0.1 Nucleated Red Blood Cells # 0.0 Prothrombin Time 12.8 Prothrombin Time Ratio 1.0 INR International Normalized Ratio 0.96 Activated Partial Thromboplast Time 28.6 Sodium Level 145 H Potassium Level 3.7 Chloride Level 100 Carbon Dioxide Level 29 Anion Gap 20 H Blood Urea Nitrogen 24 H Creatinine 0.81 Glucose Level 183 Hemoglobin A1c 7.7 H Calcium Level 10.3 H Creatine Kinase 67 48 Creatine Kinase Index 1.2 1.4 Creatinine Kinase MB (Mass) 0.82 0.69 Troponin I < 0.012 < 0.012 Vitamin D 1,25-Dihydroxy 44.7 Thyroid Stimulating Hormone (TSH) 6.160 H Free Thyroxine 1.08 Bedside Glucose 170 201 Test 12/31/16 07:12 12/31/16 07:13 12/31/16 08:26 12/31/16 12:33 Sodium Level 143 Potassium Level 4.1 Chloride Level 101 Carbon Dioxide Level 30 Anion Gap 16 Blood Urea Nitrogen 28 H Creatinine 0.87 Glucose Level 154 Calcium Level 9.3 Phosphorus Level 4.5 Magnesium Level 1.7 Total Bilirubin 0.6 Direct Bilirubin 0.00 Indirect Bilirubin 0.6 Aspartate Amino Transf (AST/SGOT) 88 H Alanine Aminotransferase (ALT/SGPT) 55 Alkaline Phosphatase 38 L Creatine Kinase 66 Creatine Kinase Index 1.0 Creatinine Kinase MB (Mass) 0.66 Troponin I < 0.012 Total Protein 6.8 Albumin 3.8 Globulin 3.00 Albumin/Globulin Ratio 1.26 Triglycerides Level 141 Cholesterol Level 135 LDL Cholesterol, Calculated 61 HDL Cholesterol 46 Cholesterol/HDL Ratio 2.9 White Blood Count 7.4 Red Blood Count 4.22 Hemoglobin 13.2 Hematocrit 39.2 Mean Corpuscular Volume 92.9 Mean Corpuscular Hemoglobin 31.3 Mean Corpuscular Hemoglobin Concent 33.7 Red Cell Distribution Width 12.1 Platelet Count 218 Mean Platelet Volume 10.1 Neutrophils % 47.1 Lymphocytes % 37.2 Monocytes % 10.7 Eosinophils % 3.8 Basophils % 1.1 Nucleated Red Blood Cells % 0.0 Neutrophils # 3.5 Lymphocytes # 2.8 Monocytes # 0.8 Eosinophils # 0.3 Basophils # 0.1 Nucleated Red Blood Cells # 0.0 Bedside Glucose 148 226 H Medications Medications Current Medications Ondansetron HCl (Zofran Inj) 4 mg Q6H PRN IV NAUSEA AND/OR VOMITING; Start at 16:30 Aspirin (Aspirin) 81 mg DAILY PO Last administered on 12/31/16 08:55; Admin Dose 81 MG; Start 12/31/16 at 09:00 Nitroglycerin (Nitroglycerin (Sl Tab) 0.4 Mg) 1 tab Q5M PRN SL CHEST PAIN; Start 12/30/16 at 16:30 Acetaminophen (Tylenol Tab) 650 mg Q6H PRN PO PAIN LEVEL 1-3 OR FEVER; Start at 16:30 Acetaminophen/ Hydrocodone Bitart ([place] (5/325)) 1 tab Q6H PRN PO PAIN LEVEL 4 -6; Start 12/30/16 at 16:30 Magnesium Hydroxide (Milk Of Mag) 30 ml DAILY PRN PO CONSTIPATION; Start at 16:30 Bisacodyl (Dulcolax) 5 mg DAILY PRN PO CONSTIPATION; Start 12/30/16 at 16:30 Famotidine (Pepcid) 20 mg Q12 PO Last administered on 12/31/16 08:55; Admin Dose 20 MG; Start 12/30/16 at 21:00 Enoxaparin Sodium (Lovenox) 40 mg DAILY SC Last administered on 12/31/16 08:57 ; Admin Dose 40 MG; Start 12/31/16 at 09:00 Atenolol (Tenormin) 100 mg DAILY PO Last administered on 12/31/16 08:55; Admin Dose 100 MG; Start 12/31/16 at 09:00 Hydrochlorothiazide (Hydrochlorothiazide) 25 mg DAILY PO Last administered on 08:55; Admin Dose 25 MG; Start 12/31/16 at 09:00 Losartan Potassium (Cozaar) 50 mg DAILY PO Last administered on 12/31/16 08:56 ; Admin Dose 50 MG; Start 12/31/16 at 09:00 Diagnostic Test (Pha) (Accu-Chek) 1 ea 02 XX ; Start 12/31/16 at 02:00 Insulin Glargine (Lantus) 16 unit DAILY@08 SC Last administered on 12/31/16 09 :20; Admin Dose 16 UNIT; Start 12/31/16 at 08:00 Hydralazine HCl (Apresoline) 10 mg Q6H PRN IV SBP>160; Start 12/30/16 at 17:00 JUAN JOSE CHOU NP Dec 31, 2016 13:39
--- NOTE | 2016-12-31 16:24 | RADRPT ---
Echocardiogram Report Patient Name: IBIS BANKS Gender: Female Date: 1955 Study Date: 31-Dec-2016 [employer] Operator: Mary Alice Jack [facility] Location: [id number] Ref. Physician: JUAN JOSE CHOU Quality: Good Procedures: Transthoracic echocardiogram with complete 2D, M-Mode, and doppler examination. Indications: Chest Pain. 2D/M Mode Doppler Measurement Value Normal Ranges Measurement Value Normal Ranges LVIDd 2D 4.4 3.5 - 5.6 cm AV Peak Brian 1.5 m/sec LVIDs 2D 2.2 2.1 - 4.1 cm AV Peak PG 9.0 mmHg FS 2D 49.7 % LVOT Peak Brian 1.1 m/sec LVPWd 2D 0.9 0.6 - 1.1 cm LVOT Peak PG 5.0 mmHg IVSd 2D 1.0 0.6 - 1.1 cm MV E Peak Brian 1.0 m/sec IVS/LVPW 2D 1.1 MV A Peak Brian 0.8 m/sec AoR Diam 2D 2.2 2.0 - 3.7 cm MV E/A 1.3 LA/Ao 2D 1 0 - 1 MV Decel Time 162 msec EDV 2D 83.5 cm3 MV E/A 1.3 ESV 2D 10.6 cm3 TR Peak Brian 2.6 m/sec LA Dimen 2D 3.0 2.3 - 4.0 cm TR Peak PG 27.0 mmHg RVSP 30.0 mmHg Findings Left Ventricle: Normal left ventricular systolic function. Normal left ventricular cavity size. Normal left ventricular wall thickness. Ejection fraction is visually estimated at 60 %. Tissue Doppler/Mitral Doppler indices are consistent with pseudonormalization with mildly elevated left atrial pressure (Stage II diastolic dysfunction). Right Ventricle: Normal right ventricular size. Normal right ventricular systolic function. Left Atrium: The left atrium is normal in size. Right Atrium: The right atrium is normal in size. Mitral Valve: Normal appearance of the mitral valve. Mild mitral annular calcification. There is trace to mild mitral valve regurgitation. Aortic Valve: Normal appearance of the aortic valve. No significant aortic stenosis or insufficiency. Tricuspid Valve: Normal appearance of the tricuspid valve. Estimated peak PA systolic pressure 30 mmHg. There is trace tricuspid regurgitation. Pulmonic Valve: Pulmonic valve not well visualized. Pericardium: Normal pericardium with no significant pericardial effusion. Aorta: Normal aortic root. IVC: Normal size and normal respiratory collapse consistent with normal right atrial pressure. Conclusions 1.Normal left ventricular systolic function. Normal left ventricular cavity size. Normal left ventricular wall thickness. Ejection fraction is visually estimated at 60 %. Tissue Doppler/Mitral Doppler indices are consistent with pseudonormalization with mildly elevated left atrial pressure (Stage II diastolic dysfunction). 2.Normal appearance of the mitral valve. Mild mitral annular calcification. There is trace to mild mitral valve regurgitation. 3.Normal appearance of the tricuspid valve. Estimated peak PA systolic pressure 30 mmHg. There is trace tricuspid regurgitation. Electronically Signed By: Aaron Flores 31-Dec-2016 16:23:20 -0700 Patient Name: IBIS BANKS Study Date: 31-Dec-2016 [id number]
--- NOTE | 2016-12-31 21:03 | CONS ---
Date/Time of Note Date/Time of Note DATE: 12/31/16 TIME: 21:00 Assessment/Plan Assessment/Plan Chief Complaint/Hosp Course Colon cancer. Status post resection and chemotherapy. MAHESH MONITOR CLOSELY Chest pain. Reported positive stress test as outpatient. The patient will be continued on aspirin. Pending cardiology evaluation. Pending 2D echocardiogram results. Headache. Etiology unclear. CT scan of the brain negative for any acute intracranial pathology. Essential hypertension. Continue antihypertensives including PRN antihypertensives for any systolic blood pressure readings greater than 160 mmHg. Type 2 diabetes mellitus. Hemoglobin A1c 7.7. Continue sliding scale insulin along with pre-meal insulin basal insulin. Obesity. BMI of 32.3 kg/m. Weight reduction was advised. Fluids, electrolytes, and nutrition. Carbohydrate controlled, low-cholesterol diet. DVT prophylaxis. Subcutaneous Lovenox. Gastrointestinal prophylaxis. Histamine 2 receptor blockers. Plan. Continue current management. Await cardiology W-UP Problems: Consultation Date/Type/Reason Admit Date/Time Dec 30, 2016 at 15:09 Initial Consult Date 24 HR Interval Summary Free Text/Dictation NO CP Exam/Review of Systems Vital Signs Vitals Vital Signs Date Time Temp Pulse Resp B/P Pulse Ox O2 Delivery O2 Flow Rate FiO2 12/31/16 20:25 97.6 67 16 111/54 96 12/30/16 18:54 Room Air 12/30/16 16:34 2 Intake and Output 12/30/16 12/30/16 12/31/16 15:00 23:00 07:00 Intake Total 400 ml Balance 400 ml Exam Exam General: Obese 61 year-old female lying in bed in no apparent distress. HEENT: Normocephalic, atraumatic. Eyes: Anicteric sclerae, conjunctivae clear. ENT: Nasal septum midline, oral mucosa moist. Neck supple, no JVD noticed. Respiratory: Bilaterally clear breath sounds. No use of accessory muscles of respiration. No adventitious breath sounds. Cardiovascular: S1, S2 heard. No murmurs or gallops. Abdomen: Soft, nontender, and nondistended. Bowel sounds positive in all 4 quadrants. Genitourinary: Deferred. Extremities: No cyanosis, no clubbing, no edema. Peripheral pulses palpable. Neurologic: Cranial nerves II through XII grossly intact. The patient is awake, alert, and oriented. Skin: Normal skin turgor. No skin rashes. Results Result Diagram: 12/31/16 0713 12/31/16 0712 Results 24 hrs Laboratory Tests Test 12/31/16 01:39 12/31/16 02:04 12/31/16 07:12 12/31/16 07:13 Creatine Kinase 48 66 Creatine Kinase Index 1.4 1.0 Creatinine Kinase MB (Mass) 0.69 0.66 Troponin I < 0.012 < 0.012 Bedside Glucose 201 Sodium Level 143 Potassium Level 4.1 Chloride Level 101 Carbon Dioxide Level 30 Anion Gap 16 Blood Urea Nitrogen 28 H Creatinine 0.87 Glucose Level 154 Calcium Level 9.3 Phosphorus Level 4.5 Magnesium Level 1.7 Total Bilirubin 0.6 Direct Bilirubin 0.00 Indirect Bilirubin 0.6 Aspartate Amino Transf (AST/SGOT) 88 H Alanine Aminotransferase (ALT/SGPT) 55 Alkaline Phosphatase 38 L Total Protein 6.8 Albumin 3.8 Globulin 3.00 Albumin/Globulin Ratio 1.26 Triglycerides Level 141 Cholesterol Level 135 LDL Cholesterol, Calculated 61 HDL Cholesterol 46 Cholesterol/HDL Ratio 2.9 White Blood Count 7.4 Red Blood Count 4.22 Hemoglobin 13.2 Hematocrit 39.2 Mean Corpuscular Volume 92.9 Mean Corpuscular Hemoglobin 31.3 Mean Corpuscular Hemoglobin Concent 33.7 Red Cell Distribution Width 12.1 Platelet Count 218 Mean Platelet Volume 10.1 Neutrophils % 47.1 Lymphocytes % 37.2 Monocytes % 10.7 Eosinophils % 3.8 Basophils % 1.1 Nucleated Red Blood Cells % 0.0 Neutrophils # 3.5 Lymphocytes # 2.8 Monocytes # 0.8 Eosinophils # 0.3 Basophils # 0.1 Nucleated Red Blood Cells # 0.0 Test 12/31/16 08:26 12/31/16 12:33 12/31/16 17:22 12/31/16 20:09 Bedside Glucose 148 226 H 187 230 H Medications Medications Current Medications Ondansetron HCl (Zofran Inj) 4 mg Q6H PRN IV NAUSEA AND/OR VOMITING; Start at 16:30 Aspirin (Aspirin) 81 mg DAILY PO Last administered on 12/31/16t 08:55; Admin Dose 81 MG; Start 12/31/16 at 09:00 Nitroglycerin (Nitroglycerin (Sl Tab) 0.4 Mg) 1 tab Q5M PRN SL CHEST PAIN; Start 12/30/16 at 16:30 Acetaminophen (Tylenol Tab) 650 mg Q6H PRN PO PAIN LEVEL 1-3 OR FEVER; Start at 16:30 Acetaminophen/ Hydrocodone Bitart ([place] (5/325)) 1 tab Q6H PRN PO PAIN LEVEL 4 -6; Start 12/30/16 at 16:30 Magnesium Hydroxide (Milk Of Mag) 30 ml DAILY PRN PO CONSTIPATION; Start at 16:30 Bisacodyl (Dulcolax) 5 mg DAILY PRN PO CONSTIPATION; Start 12/30/16 at 16:30 Famotidine (Pepcid) 20 mg Q12 PO Last administered on 12/31/16 08:55; Admin Dose 20 MG; Start 12/30/16 at 21:00 Enoxaparin Sodium (Lovenox) 40 mg DAILY SC Last administered on 12/31/16 08:57 ; Admin Dose 40 MG; Start 12/31/16 at 09:00 Atenolol (Tenormin) 100 mg DAILY PO Last administered on 12/31/16 08:55; Admin Dose 100 MG; Start 12/31/16 at 09:00 Hydrochlorothiazide (Hydrochlorothiazide) 25 mg DAILY PO Last administered on 08:55; Admin Dose 25 MG; Start 12/31/16 at 09:00 Losartan Potassium (Cozaar) 50 mg DAILY PO Last administered on 12/31/16 08:56 ; Admin Dose 50 MG; Start 12/31/16 at 09:00 Diagnostic Test (Pha) (Accu-Chek) 1 ea 02 XX ; Start 12/31/16 at 02:00 Insulin Glargine (Lantus) 16 unit DAILY@08 SC Last administered on 12/31/16 09 :20; Admin Dose 16 UNIT; Start 12/31/16 at 08:00 Hydralazine HCl (Apresoline) 10 mg Q6H PRN IV SBP>160; Start 12/30/16 at 17:00 DORON AKHTAR MD Dec 31, 2016 21:02
[2017-01-01] VITALS (8 sets, daily range): BP systolic 112–120; BP diastolic 57–67; PULSE 57–64; RESP 16–18
[2017-01-01] MEDS: ACCU-CHEK XX SCH (02:00)
[2017-01-01 07:18] LABS: BASOPHIL # 0.1 10^3/ul (0.0-0.1); BASOPHILS % 1.3 % (0.0-2.0); EOSINOPHILS # 0.3 10^3/ul (0.0-0.5); EOSINOPHILS % 3.9 % (0.0-7.0); HEMATOCRIT 42.2 % (37.0-47.0); HEMOGLOBIN 14.2 g/dl (12.0-16.0); LYMPHOCYTES # 3.1 10^3/ul (0.8-2.9); LYMPHOCYTES % 42.9 % (15.0-51.0); MEAN CORPUSCULAR HEMOGLOBIN 31.2 pg (29.0-33.0); MEAN CORPUSCULAR HGB CONC 33.6 g/dl (32.0-37.0); MEAN CORPUSCULAR VOLUME 92.7 fl (82.0-101.0); MEAN PLATELET VOLUME 9.7 fl (7.4-10.4); MONOCYTE # 0.8 10^3/ul (0.3-0.9); MONOCYTES % 11.3 % (0.0-11.0); NEUTROPHIL # 2.9 10^3/ul (1.6-7.5); NEUTROPHILS % 40.5 % (39.0-77.0); PLATELET COUNT 226 10^3/UL (140-415); RED BLOOD COUNT 4.55 10^6/ul (4.20-5.40); RED CELL DISTRIBUTION WIDTH 12.2 % (11.5-14.5); WHITE BLOOD COUNT 7.1 10^3/ul (4.8-10.8)
[2017-01-01 07:52] LABS: CALCIUM 9.3 mg/dl (8.4-10.2); CREATININE 0.83 mg/dl (0.44-1.00); POTASSIUM 3.7 mmol/L (3.5-5.1)
[2017-01-01 07:55] LABS: MAGNESIUM 1.8 mg/dl (1.7-2.5); PHOSPHORUS 4.3 mg/dl (2.5-4.9)
[2017-01-01] MEDS: INSULIN ASPART [NOVOLOG] 3 ML PEN SC SCH ×4 (08:52→13:01)
[2017-01-01] MEDS: ENOXAPARIN 40 MG/0.4 ML SYG SC SCH (08:54)
[2017-01-01] MEDS: INSULIN GLARGINE [LANtus] 3 ML PEN SC SCH (08:55)
[2017-01-01] MEDS: FAMOTIDINE 20 MG TAB PO SCH (08:58)
[2017-01-01] MEDS: ASPIRIN 81 MG TAB PO SCH (08:58)
[2017-01-01] MEDS: ATENOLOL 100 MG TAB PO SCH (08:59)
[2017-01-01] MEDS: HYDROCHLOROTHIAZIDE 25 MG TAB PO SCH (09:00)
[2017-01-01] MEDS: LOSARTAN 50 MG TAB PO SCH (09:00)
--- NOTE | 2017-01-01 10:27 | PN ---
Date/Time of Note Date/Time of Note DATE: 01/01/17 TIME: 10:24 Assessment/Plan VTE Prophylaxis VTE Prophylaxis Intervention: LMWH Lines/Catheters IV Catheter Type (from [facility]): Saline Lock Assessment/Plan Chief Complaint/Hosp Course 1. Chest pain. Reported positive stress test as outpatient. The patient will be continued on aspirin. Cardiology following. 2D echocardiogram showing preserved left ventricular ejection fraction. 2. Headache. Etiology unclear. CT scan of the brain negative for any acute intracranial pathology. 3. Essential hypertension. Continue antihypertensives including PRN antihypertensives for any systolic blood pressure readings greater than 160 mmHg. 4. Type 2 diabetes mellitus. Hemoglobin A1c 7.7. Continue sliding scale insulin along with pre-meal insulin basal insulin. 5. Colon cancer. Status post resection and chemotherapy. Follows up with Dr. Mata as outpatient. 6. Obesity. BMI of 32.3 kg/m. Weight reduction was advised. 7. Fluids, electrolytes, and nutrition. Carbohydrate controlled, low- cholesterol diet. 8. DVT prophylaxis. Subcutaneous Lovenox. 9. Gastrointestinal prophylaxis. Histamine 2 receptor blockers. 10. Plan. Continue current management. Await further inputs from Cardiology. Case discussed with Dr. Ewing. Problems: Subjective 24 Hr Interval Summary Free Text/Dictation No reported chest pain. Exam/Review of Systems Vital Signs Vitals Vital Signs Date Time Temp Pulse Resp B/P Pulse Ox O2 Delivery O2 Flow Rate FiO2 01/01/17 08:31 98.1 59 18 114/67 98 12/30/16 18:54 Room Air 12/30/16 16:34 2 Intake and Output 12/31/16 12/31/16 01/01/17 15:00 23:00 07:00 Intake Total 750 ml 800 ml Balance 750 ml 800 ml Exam General: Obese 61 year-old female lying in bed in no apparent distress. HEENT: Normocephalic, atraumatic. Eyes: Anicteric sclerae, conjunctivae clear. ENT: Nasal septum midline, oral mucosa moist. Neck supple, no JVD noticed. Respiratory: Bilaterally clear breath sounds. No use of accessory muscles of respiration. No adventitious breath sounds. Cardiovascular: S1, S2 heard. No murmurs or gallops. Abdomen: Soft, nontender, and nondistended. Bowel sounds positive in all 4 quadrants. Genitourinary: Deferred. Extremities: No cyanosis, no clubbing, no edema. Peripheral pulses palpable. Neurologic: Cranial nerves II through XII grossly intact. The patient is awake, alert, and oriented. Skin: Normal skin turgor. No skin rashes. Results Result Diagram: 01/01/17 0659 01/01/17 0659 Results 24 hrs Laboratory Tests Test 12/31/16 12:33 12/31/16 17:22 12/31/16 20:09 01/01/17 03:02 Bedside Glucose 226 H 187 230 H 192 Test 01/01/17 06:59 01/01/17 08:37 White Blood Count 7.1 Red Blood Count 4.55 Hemoglobin 14.2 Hematocrit 42.2 Mean Corpuscular Volume 92.7 Mean Corpuscular Hemoglobin 31.2 Mean Corpuscular Hemoglobin Concent 33.6 Red Cell Distribution Width 12.2 Platelet Count 226 Mean Platelet Volume 9.7 Neutrophils % 40.5 Lymphocytes % 42.9 Monocytes % 11.3 H Eosinophils % 3.9 Basophils % 1.3 Nucleated Red Blood Cells % 0.0 Neutrophils # 2.9 Lymphocytes # 3.1 H Monocytes # 0.8 Eosinophils # 0.3 Basophils # 0.1 Nucleated Red Blood Cells # 0.0 Sodium Level 143 Potassium Level 3.7 Chloride Level 100 Carbon Dioxide Level 29 Anion Gap 18 H Blood Urea Nitrogen 22 H Creatinine 0.83 Glucose Level 150 Calcium Level 9.3 Phosphorus Level 4.3 Magnesium Level 1.8 Troponin I < 0.012 Bedside Glucose 162 Medications Medications Current Medications Ondansetron HCl (Zofran Inj) 4 mg Q6H PRN IV NAUSEA AND/OR VOMITING; Start at 16:30 Aspirin (Aspirin) 81 mg DAILY PO Last administered on 01/01/17t 08:58; Admin Dose 81 MG; Start 12/31/16 at 09:00 Nitroglycerin (Nitroglycerin (Sl Tab) 0.4 Mg) 1 tab Q5M PRN SL CHEST PAIN; Start 12/30/16 at 16:30 Acetaminophen (Tylenol Tab) 650 mg Q6H PRN PO PAIN LEVEL 1-3 OR FEVER; Start at 16:30 Acetaminophen/ Hydrocodone Bitart ([place] (5/325)) 1 tab Q6H PRN PO PAIN LEVEL 4 -6; Start 12/30/16 at 16:30 Magnesium Hydroxide (Milk Of Mag) 30 ml DAILY PRN PO CONSTIPATION; Start at 16:30 Bisacodyl (Dulcolax) 5 mg DAILY PRN PO CONSTIPATION; Start 12/30/16 at 16:30 Famotidine (Pepcid) 20 mg Q12 PO Last administered on 01/01/17 08:58; Admin Dose 20 MG; Start 12/30/16 at 21:00 Enoxaparin Sodium (Lovenox) 40 mg DAILY SC Last administered on 01/01/17 08:54 ; Admin Dose 40 MG; Start 12/31/16 at 09:00 Atenolol (Tenormin) 100 mg DAILY PO Last administered on 01/01/17 08:59; Admin Dose 100 MG; Start 12/31/16 at 09:00 Hydrochlorothiazide (Hydrochlorothiazide) 25 mg DAILY PO Last administered on 09:00; Admin Dose 25 MG; Start 12/31/16 at 09:00 Losartan Potassium (Cozaar) 50 mg DAILY PO Last administered on 01/01/17 09:00 ; Admin Dose 50 MG; Start 12/31/16 at 09:00 Diagnostic Test (Pha) (Accu-Chek) 1 ea 02 XX ; Start 12/31/16 at 02:00 Insulin Glargine (Lantus) 16 unit DAILY@08 SC Last administered on 01/01/17 08 :55; Admin Dose 16 UNIT; Start 12/31/16 at 08:00 Hydralazine HCl (Apresoline) 10 mg Q6H PRN IV SBP>160; Start 12/30/16 at 17:00 JUAN JOSE CHOU NP Jan 01, 2017 10:27
--- NOTE | 2017-01-01 12:58 | CONS ---
Date/Time of Note Date/Time of Note DATE: 01/01/17 TIME: 12:54 Assessment/Plan Assessment/Plan Additional Assessment/Plan 1. Chest pain - on meds. R/O [place] - outpt [facility] reasonable given negative troponin. 2. Headache. Etiology unclear. CT scan of the brain negative for any acute intracranial pathology. 3. Essential hypertension - better Rx now. 4. Type 2 diabetes mellitus. Hemoglobin A1c 7.7. Continue sliding scale insulin along with pre-meal insulin basal insulin. 5. Colon cancer. Status post resection and chemotherapy. Follows up with Dr. Mata as outpatient. 6. Obesity. BMI of 32.3 kg/m. Weight reduction was advised. 7. Fluids, electrolytes, and nutrition. Carbohydrate controlled, low- cholesterol diet. 8. DVT prophylaxis. Subcutaneous Lovenox. 9. Gastrointestinal prophylaxis. Histamine 2 receptor blockers. 10. Plan. Continue current management. Await further inputs from Cardiology. Consultation Date/Type/Reason Admit Date/Time Dec 30, 2016 at 15:09 Initial Consult Date 24 HR Interval Summary Free Text/Dictation R/O [place] - outpt [facility] reasonable given negative troponin. ROS: No fever, no chills, no nausea, no vomiting, no diarrhea/constipation No recent weight changes No chest pain, no PND, no orthopnea No dizziness, blurred vision No thirst, no heat or cold intolerance Exam/Review of Systems Vital Signs Vitals Vital Signs Date Time Temp Pulse Resp B/P Pulse Ox O2 Delivery O2 Flow Rate FiO2 01/01/17 12:12 58 01/01/17 12:07 98.2 17 112/57 96 12/30/16 18:54 Room Air 12/30/16 16:34 2 Intake and Output 12/31/16 12/31/16 01/01/17 15:00 23:00 07:00 Intake Total 750 ml 800 ml Balance 750 ml 800 ml Exam General: WN/WD/NAD, AOx 3 HEENT: Unicetric/atraumatic/EOMI (follows commands) NECK: JVD elevated, no thyromegaly Lymph: no lymphadenopathy HEART: regular with no S3, II/ systolic murmur at apex LUNGS: Coarse sounds ABD: soft, NT, ND, +BS : Intact Neuro: non focal SKIN: chronic changes EXT: trace edema Results Result Diagram: 01/01/17 0659 01/01/17 0659 Results 24 hrs Laboratory Tests Test 12/31/16 17:22 12/31/16 20:09 01/01/17 03:02 01/01/17 06:59 Bedside Glucose 187 230 H 192 White Blood Count 7.1 Red Blood Count 4.55 Hemoglobin 14.2 Hematocrit 42.2 Mean Corpuscular Volume 92.7 Mean Corpuscular Hemoglobin 31.2 Mean Corpuscular Hemoglobin Concent 33.6 Red Cell Distribution Width 12.2 Platelet Count 226 Mean Platelet Volume 9.7 Neutrophils % 40.5 Lymphocytes % 42.9 Monocytes % 11.3 H Eosinophils % 3.9 Basophils % 1.3 Nucleated Red Blood Cells % 0.0 Neutrophils # 2.9 Lymphocytes # 3.1 H Monocytes # 0.8 Eosinophils # 0.3 Basophils # 0.1 Nucleated Red Blood Cells # 0.0 Sodium Level 143 Potassium Level 3.7 Chloride Level 100 Carbon Dioxide Level 29 Anion Gap 18 H Blood Urea Nitrogen 22 H Creatinine 0.83 Glucose Level 150 Calcium Level 9.3 Phosphorus Level 4.3 Magnesium Level 1.8 Troponin I < 0.012 Test 01/01/17 08:37 01/01/17 12:36 Bedside Glucose 162 191 Medications Medications Current Medications Ondansetron HCl (Zofran Inj) 4 mg Q6H PRN IV NAUSEA AND/OR VOMITING; Start at 16:30 Aspirin (Aspirin) 81 mg DAILY PO Last administered on 01/01/17t 08:58; Admin Dose 81 MG; Start 12/31/16 at 09:00 Nitroglycerin (Nitroglycerin (Sl Tab) 0.4 Mg) 1 tab Q5M PRN SL CHEST PAIN; Start 12/30/16 at 16:30 Acetaminophen (Tylenol Tab) 650 mg Q6H PRN PO PAIN LEVEL 1-3 OR FEVER; Start at 16:30 Acetaminophen/ Hydrocodone Bitart (Strandquist (5/325)) 1 tab Q6H PRN PO PAIN LEVEL 4 -6; Start 12/30/16 at 16:30 Magnesium Hydroxide (Milk Of Mag) 30 ml DAILY PRN PO CONSTIPATION; Start at 16:30 Bisacodyl (Dulcolax) 5 mg DAILY PRN PO CONSTIPATION; Start 12/30/16 at 16:30 Famotidine (Pepcid) 20 mg Q12 PO Last administered on 01/01/17 08:58; Admin Dose 20 MG; Start 12/30/16 at 21:00 Enoxaparin Sodium (Lovenox) 40 mg DAILY SC Last administered on 01/01/17 08:54 ; Admin Dose 40 MG; Start 12/31/16 at 09:00 Atenolol (Tenormin) 100 mg DAILY PO Last administered on 01/01/17 08:59; Admin Dose 100 MG; Start 12/31/16 at 09:00 Hydrochlorothiazide (Hydrochlorothiazide) 25 mg DAILY PO Last administered on 09:00; Admin Dose 25 MG; Start 12/31/16 at 09:00 Losartan Potassium (Cozaar) 50 mg DAILY PO Last administered on 01/01/17 09:00 ; Admin Dose 50 MG; Start 12/31/16 at 09:00 Diagnostic Test (Pha) (Accu-Chek) 1 ea 02 XX ; Start 12/31/16 at 02:00 Insulin Glargine (Lantus) 16 unit DAILY@08 SC Last administered on 01/01/17 08 :55; Admin Dose 16 UNIT; Start 12/31/16 at 08:00 Hydralazine HCl (Apresoline) 10 mg Q6H PRN IV SBP>160; Start 12/30/16 at 17:00 ALINE SMITH MD Jan 01, 2017 12:58
--- NOTE | 2017-01-01 14:29 | PDOCDIS ---
Discharge Instructions DIAGNOSIS Discharge Diagnosis Chest pain. CONDITION Patient Condition: Stable HOME CARE INSTRUCTIONS: Special Diet: Carb controlled diet FOLLOW UP/APPOINTMENTS Follow-up Plan Cristi Brady MD Specialty: Cardiology Office Address [address] [place] [address] Office OTHER ORDERS: Other Orders: 1. Resume home medications. 2. Take a low-cholesterol, carbohydrate controlled diet. 3. Resume activities as tolerated. 4. Follow-up with Dr. Brady as outpatient is scheduled for a angiogram. 5. Please call 911 or go to the nearest emergency room if you have significant chest pain, sudden onset of focal weakness, or any other unusual signs/symptoms. JUAN JOSE CHOU NP Jan 01, 2017 14:28
--- NOTE | 2017-01-01 14:37 | DS ---
Date/Time of Note Date/Time of Note DATE: 01/01/17 TIME: 14:34 Discharge Summary Admission/Discharge Info Admit Date/Time Dec 30, 2016 at 15:09 Discharge Date/Time Discharge Diagnosis 1. Chest pain. 2. Headache. 3. Essential hypertension. 4. Type 2 diabetes mellitus. 5. Colon cancer. Status post resection and chemotherapy. 6. Obesity. 7. Subclinical hypothyroidism. Patient Condition: Stable Consults 1. Aaron Flores MD, Cardiology. 2. Frederick Barnes MD, Cardiology. 3. Azul Mata MD, Oncology. Procedures 2D Echocardiogram Conclusions 1. Normal left ventricular systolic function. Normal left ventricular cavity size. Normal left ventricular wall thickness. Ejection fraction is visually estimated at 60 %. Tissue Doppler/Mitral Doppler indices are consistent with pseudonormalization with mildly elevated left atrial pressure (Stage II diastolic dysfunction). 2. Normal appearance of the mitral valve. Mild mitral annular calcification. There is trace to mild mitral valve regurgitation. 3. Normal appearance of the tricuspid valve. Estimated peak PA systolic pressure 30 mmHg. There is trace tricuspid regurgitation. Hx of Present Illness Reason for Admission: Chest Pain. Consultants 1. Aaron Flores MD, Cardiology. This is a 61-year-old [place] female with past medical history of essential hypertension, type 2 diabetes mellitus, colon cancer status post resection and chemotherapy, and obesity who has a strong family history of coronary artery disease. The patient also had a reported positive stress test as outpatient in October 2016. The patient follows up with Dr. Brady as outpatient for her heart problems. The patient started having chest pain the morning on 12/30/2016. The patient verbalized the chest pain as sharp with radiation to the neck with associated diaphoresis and nausea. The patient denied any dyspnea or orthopnea. The patient denied any calf pain or bilateral lower extremity edema. Patient denied any fevers, chills, cough, abdominal pain, diarrhea, dysuria, or hematuria. The patient denied any recent long travels. The patient verbalized that she has been compliant with all her home medications. The patient also complained about left-sided neck pain that has been radiating to the occipital area for the past few days. The patient denied any blurred vision. She denied any focal weakness. The emergency room, the patient underwent atrial lead EKG that showed normal sinus rhythm. The patient's initial troponins were negative. The patient's chest x-ray was negative for any acute cardiopulmonary findings. The patient was treated with oral aspirin and nitroglycerin transdermal patch in the emergency room. Hospital Course The patient was admitted to inpatient telemetry floor. Cardiology consult was obtained. Serial troponins were ordered. A 2D echocardiogram was obtained. The patient's serial troponins remained negative. The patient's 2D echocardiogram showed preserved left ventricular ejection fraction with stage II diastolic dysfunction. The patient was maintained on aspirin. The patient had a positive stress test as outpatient with her primary manager managed backup services. The patient was evaluated by cardiology and cardiology recommended outpatient follow -up for scheduling a left heart catheterization since the patient had no elevated troponins. The patient has underlying essential hypertension. She was maintained on antihypertensives for the same. The patient's blood pressure remained stable. The patient has underlying type 2 diabetes mellitus. Her hemoglobin A1c was found to be 7.7. The patient has history of colon cancer. She is status post resection and chemotherapy. The patient follows with Dr. Mata as outpatient. Dr. Mata was following the patient in house. The patient also complained of headache with radiation to the occipital area. The patient underwent a brain CT scan that was negative for any acute intracranial findings. The etiology of this remains unclear. The patient's headache is more or less resolved towards the end of the patient's hospital stay. The patient had a stable hospital course. The patient was cleared by cardiology to be discharged home provided the patient follows up with outpatient cardiology for scheduling a left heart catheterization. Discharge Instructions 1. Resume home medications. 2. Take a low-cholesterol, carbohydrate controlled diet. 3. Resume activities as tolerated. 4. Follow-up with Dr. Brady as outpatient is scheduled for a angiogram. 5. Please call 911 or go to the nearest emergency room if you have significant chest pain, sudden onset of focal weakness, or any other unusual signs/symptoms. The patient verbalized understanding of her discharge instructions. I would like to thank all the consultants for seeing the patient and providing clinical recommendations. The case and management of this patient was fully discussed with Dr. Ewing. Home Meds Reported Medications Atenolol* (Atenolol*) 100 Mg Tablet, 100 MG PO DAILY, #30 TAB 12/30/16 Dicyclomine Hcl* (Bentyl*) 20 Mg Tablet, 20 MG PO QID Y for PAIN, TAB 8/22/16 Hydrochlorothiazide* (Hydrochlorothiazide*) 25 Mg Tab, 25 MG PO DAILY, #30 TAB 01/26/16 Losartan Potassium* (Losartan Potassium*) 50 Mg Tablet, 50 MG PO DAILY, TAB 03/12/15 Metformin Hcl* (Metformin Hcl*) 1,000 Mg Tablet, 1000 MG PO BID, TAB 03/12/15 Aspirin* (Aspirin* EC) 81 Mg Tablet.dr, 81 MG PO DAILY, TAB 03/12/15 Discontinued Reported Medications Atenolol* (Atenolol*) 50 Mg Tablet, 50 MG PO DAILY, TAB 03/12/15 Discontinued Scripts Ondansetron Hcl* (Zofran*) 4 Mg Tablet, 4 MG PO Q8H Y for NAUSEA AND/OR VOMITING , #20 TAB 0 Refills Prov:CECILIA STILES 08/22/16 Follow-up Plan Follow-up with Dr. Brady for arranging outpatient angiogram at the earliest. Primary Care Provider Gena Rothman MD Time spent on discharge: > 30 minutes Pending Labs Laboratory Tests Test 12/31/16 17:22 12/31/16 20:09 01/01/17 03:02 01/01/17 06:59 Bedside Glucose 187mg/dL (70-220) 230mg/dL (70-220) 192mg/dL (70-220) White Blood Count 7.110^3/ul (4.8-10.8) Red Blood Count 4.5510^6/ul (4.20-5.40) Hemoglobin 14.2g/dl (12.0-16.0) Hematocrit 42.2% (37.0-47.0) Mean Corpuscular Volume 92.7fl (82.0-101.0) Mean Corpuscular Hemoglobin 31.2pg (29.0-33.0) Mean Corpuscular Hemoglobin Concent 33.6g/dl (32.0-37.0) Red Cell Distribution Width 12.2% (11.5-14.5) Platelet Count 81068^3/UL (140-415) Mean Platelet Volume 9.7fl (7.4-10.4) Neutrophils % 40.5% (39.0-77.0) Lymphocytes % 42.9% (15.0-51.0) Monocytes % 11.3% (0.0-11.0) Eosinophils % 3.9% (0.0-7.0) Basophils % 1.3% (0.0-2.0) Nucleated Red Blood Cells % 0.0/100WBC (0.0-0.0) Neutrophils # 2.910^3/ul (1.6-7.5) Lymphocytes # 3.110^3/ul (0.8-2.9) Monocytes # 0.810^3/ul (0.3-0.9) Eosinophils # 0.310^3/ul (0.0-0.5) Basophils # 0.110^3/ul (0.0-0.1) Nucleated Red Blood Cells # 0.010^3/ul (0.0-0.0) Sodium Level 143mmol/L (135-144) Potassium Level 3.7mmol/L (3.5-5.1) Chloride Level 100mmol/L (97-110) Carbon Dioxide Level 29mmol/L (21-31) Anion Gap 18 (8-16) Blood Urea Nitrogen 22mg/dl (7-20) Creatinine 0.83mg/dl (0.44-1.00) Glucose Level 150mg/dl (70-220) Calcium Level 9.3mg/dl (8.4-10.2) Phosphorus Level 4.3mg/dl (2.5-4.9) Magnesium Level 1.8mg/dl (1.7-2.5) Troponin I < 0.012ng/ml (0.00-0.12) Test 01/01/17 08:37 01/01/17 12:36 Bedside Glucose 162mg/dL (70-220) 191mg/dL (70-220) JUAN JOSE CHOU NP Jan 01, 2017 14:37
--- NOTE | 2017-01-01 17:15 | CONS ---
Date/Time of Note Date/Time of Note DATE: 01/01/17 TIME: 12:14 VK LE Assessment/Plan Assessment/Plan Chief Complaint/Hosp Course Colon cancer. Status post resection and chemotherapy. MAHESH MONITOR CLOSELY Chest pain. Reported positive stress test as outpatient. The patient will be continued on aspirin. Pending cardiology evaluation. Pending 2D echocardiogram results. Headache. Etiology unclear. CT scan of the brain negative for any acute intracranial pathology. Essential hypertension. Continue antihypertensives including PRN antihypertensives for any systolic blood pressure readings greater than 160 mmHg. Type 2 diabetes mellitus. Hemoglobin A1c 7.7. Continue sliding scale insulin along with pre-meal insulin basal insulin. Obesity. BMI of 32.3 kg/m. Weight reduction was advised. Fluids, electrolytes, and nutrition. Carbohydrate controlled, low-cholesterol diet. DVT prophylaxis. Subcutaneous Lovenox. Gastrointestinal prophylaxis. Histamine 2 receptor blockers. Plan. Continue current management. Await cardiology W-UP Problems: Consultation Date/Type/Reason Admit Date/Time Dec 30, 2016 at 15:09 24 HR Interval Summary Free Text/Dictation ALL NOTED FELLING BETTER Exam/Review of Systems Vital Signs Vitals Vital Signs Date Time Temp Pulse Resp B/P Pulse Ox O2 Delivery O2 Flow Rate FiO2 01/01/17 12:12 58 01/01/17 12:07 98.2 17 112/57 96 12/30/16 18:54 Room Air 12/30/16 16:34 2 Intake and Output 12/31/16 12/31/16 01/01/17 14:59 22:59 06:59 Intake Total 750 ml 800 ml Balance 750 ml 800 ml Exam General: Obese 61 year-old female lying in bed in no apparent distress. HEENT: Normocephalic, atraumatic. Eyes: Anicteric sclerae, conjunctivae clear. ENT: Nasal septum midline, oral mucosa moist. Neck supple, no JVD noticed. Respiratory: Bilaterally clear breath sounds. No use of accessory muscles of respiration. No adventitious breath sounds. Cardiovascular: S1, S2 heard. No murmurs or gallops. Abdomen: Soft, nontender, and nondistended. Bowel sounds positive in all 4 quadrants. Genitourinary: Deferred. Extremities: No cyanosis, no clubbing, no edema. Peripheral pulses palpable. Neurologic: Cranial nerves II through XII grossly intact. The patient is awake, alert, and oriented. Skin: Normal skin turgor. No skin rashes. Results Result Diagram: 01/01/17 0659 01/01/17 0659 Results 24 hrs Laboratory Tests Test 12/31/16 17:22 12/31/16 20:09 01/01/17 03:02 01/01/17 06:59 Bedside Glucose 187 230 H 192 White Blood Count 7.1 Red Blood Count 4.55 Hemoglobin 14.2 Hematocrit 42.2 Mean Corpuscular Volume 92.7 Mean Corpuscular Hemoglobin 31.2 Mean Corpuscular Hemoglobin Concent 33.6 Red Cell Distribution Width 12.2 Platelet Count 226 Mean Platelet Volume 9.7 Neutrophils % 40.5 Lymphocytes % 42.9 Monocytes % 11.3 H Eosinophils % 3.9 Basophils % 1.3 Nucleated Red Blood Cells % 0.0 Neutrophils # 2.9 Lymphocytes # 3.1 H Monocytes # 0.8 Eosinophils # 0.3 Basophils # 0.1 Nucleated Red Blood Cells # 0.0 Sodium Level 143 Potassium Level 3.7 Chloride Level 100 Carbon Dioxide Level 29 Anion Gap 18 H Blood Urea Nitrogen 22 H Creatinine 0.83 Glucose Level 150 Calcium Level 9.3 Phosphorus Level 4.3 Magnesium Level 1.8 Troponin I < 0.012 Test 01/01/17 08:37 01/01/17 12:36 Bedside Glucose 162 191 DORON AKHTAR MD Jan 01, 2017 17:15
--- NOTE | 2017-01-03 09:32 | CONS ---
DATE OF ADMISSION: 12/30/2016 DATE OF CONSULTATION: 12/31/2016 REASON FOR CONSULTATION: Chest pain. Assess for acute coronary syndrome. REQUESTING PHYSICIAN: Cassie Ewing MD from the hospitalist service. HISTORY OF PRESENT ILLNESS: Ms Parker is a 61-year-old female with a history of prior CVA in May 2016, hypertension, diabetes mellitus, who initially underwent complaints of substernal chest pain as well as pain from her neck radiating to her head, ongoing for approximately three days. No relation to exertional activities, described as a stabbing sensation without radiation. Upon arrival in the Emergency Department, temperature 98.2, blood pressure 129/66, pulse 71, respirations 18, O2 saturation 97 percent. Patient's labs show white count 8.7, hemoglobin 14.0, platelet count 239. Sodium 145, potassium 3.7, creatinine 0.8, BUN 24, calcium 10.3. Troponin negative. TSH elevated at 6.16 with normal free T4. INR 0.96. The patient underwent a head CT revealing no evidence of acute intracranial pathology, small cystic foci in the medial right cerebellum and right middle cerebellar peduncle, small cyst located in the medial right restoration inferior basal ganglion region. A chest x- ray revealed no evidence of acute cardiopulmonary disease. The patient's electrocardiogram revealed normal sinus rhythm at a rate of 67, normal axis, normal intervals with biphasic T-wave abnormalities in the inferior leads. The patient subsequently was admitted to the floor and since admit to the floor, has had recurrent episodes of stabbing chest pain and left-sided neck pain. PAST MEDICAL HISTORY: As above in HPI. MEDICATION CURRENTLY IN THE HOSPITAL: 1. Aspirin 81 mg daily. 2. Atenolol 100 mg daily. 3. Hydrochlorothiazide 25 mg daily. 4. Cozaar 50 mg daily. 5. Lantus insulin sliding scale. 6. P.r.n. sublingual nitroglycerin. ALLERGIES: NO KNOWN DRUG ALLERGIES. SOCIAL HISTORY: No tobacco, ETOH or illicit drug use. FAMILY HISTORY: Negative for sudden cardiac or early coronary artery disease. REVIEW OF SYSTEMS: As above in HPI. CONSTITUTIONAL: No fever or chills. PULMONARY: No current shortness of breath. CARDIOVASCULAR: Intermittent chest pain. GI: No vomiting. : No hematuria. MUSCULOSKELETAL: No joint disease. PSYCHIATRIC: The patient denies depression. NEURO: Documentation of CVA. PHYSICAL EXAMINATION: VITAL SIGNS: Temperature of 98.2, blood pressure 126/64. Pulse 64. Respirations 18. Satting 97 percent. GENERAL APPEARANCE: The patient is alert, awake, in no acute distress. NECK: No jugular venous distention. LUNGS: Fair air entry bilaterally. HEART: Regular rate and rhythm. Normal S1, S2. 06/11 . Nondisplaced PMI. ABDOMEN: Positive bowel sounds, soft. EXTREMITIES: No edema. 1 plus pulses bilaterally. Plus 2 distal pulses. LABORATORY: As above in HPI. Troponin negative x a total of 2. White cell 10.4, hemoglobin 13.2, platelet count 218. IMAGING STUDIES: No imaging studies to review at this time. ELECTROCARDIOGRAM: As above in HPI. No further electrocardiograms for review. IMPRESSION: 1. Chest pain. Assess for acute coronary syndrome. 2. Abnormal electrocardiogram with inferolateral biphasic T- wave abnormalities. 3. Hypertension, under reasonable control. 4. History of cerebral vascular accident. 5. Diabetes mellitus. 6. Hypernatremia. . RECOMMENDATIONS: 1. At this time, would maintain patient on telemetry monitoring. Follow rhythm and rate check. 2. Complete to rule out myocardial infarction. If does not indicate acute coronary syndrome or myocardial infarction, continue baseline aspirin for prophylaxis of cardiovascular events. 3. Hypertension. Continue patient's baseline atenolol, hydrochlorothiazide and Cozaar for control of blood pressure. Will give patient sublingual nitroglycerin for recurrent chest pain. 4. Will check a 2D echo. Reassess the patient's ejection fraction and wall motion to rule out major abnormalities. Will check carotid ultrasound to rule out any carotid pathology as patient complains of pain around her carotid artery. 5. Continue to assess serial EKGs to assess T-wave changes. 6. Will review the patient's stress test as well from the office. Thank you for allowing me to take part in the care of this patient. I will continue to follow closely with you and further recommendations made depending on inpatient hospital course. Dictated By: Natanael Kwan /brock/red /Document#: [id number] CC: Cassie Ewing MD;*End*
--- NOTE | 2017-01-03 19:30 | RADRPT ---
Vent Rate: 55 bpm RR Interval: 0 msec DE Interval: 136 msec QRS Duration: 82 msec QT Interval: 486 msec QTC Interval: 464 msec P-R-T Accord: 43 - 54 - 49 degrees Sinus bradycardia Otherwise normal ECG Electronically Signed By: Suman Arnett [id number]
== END 2017-01-01 15:20 | disposition home or self-care (01) | DRG 313 ==
LOC: E/R 13:19 → MS4 15:09
PROVIDERS: ADMIT Internal Medicine; ATTEND Internal Medicine
DX: R07.9 Chest pain, unspecified (principal); C18.9 Malignant neoplasm of colon, unspecified; I10 Essential (primary) hypertension; R51 Headache; E11.9 Type 2 diabetes mellitus without complications; E66.9 Obesity, unspecified; Z68.33 Body mass index [BMI] 33.0-33.9, adult
CPT/HCPCS: 36415; 70450; 71010; 80048; 80053; 80061; 82306; 82550; 82553; 82652; 82962; 83036; 83735; 84100; 84439; 84443; 84484; 85025; 85610; 85730; 93005; 93306; J1650; J1815

== ENCOUNTER 2017-02-24 13:24 | Emergency (ER) | payer OTHER ==
[~2017-02-24] VITALS: Ht 165.1 cm; Wt 70.0 kg
[~2017-02-24 13:24] MED LIST changes: +ATEN100T PO; -ATEN50TA PO; +CALC-277 PO; +CARB15DR50 RIGHT EAR; -DICY20TA59 PO; -HYD25 PO; +HYDR25TA6 PO; +ONDA4TAB14 PO; -ONDA4TAB8 PO
[2017-02-24 13:30] VITALS: Ht 165.1 cm; Wt 70.0 kg
[2017-02-24] MEDS ORDERED: ONDANSETRON (ODT) 4 MG TAB ODT STA (15:17)
[2017-02-24] MEDS ORDERED: MECLIZINE 12.5 MG TAB PO ONE (15:30)
--- NOTE | 2017-02-24 17:05 | RADRPT ---
PROCEDURE: CT Brain without contrast. CLINICAL INDICATION: Dizziness. TECHNIQUE: A CT of the brain was performed on a multidetector CT scanner utilizing axial sections from the skull base through the vertex without contrast. Images were reviewed on a high-resolution [employer] workstation. Exam CTDI = 43.68 mGy and the DLP = 630.2 mGy-cm. One or the following dose reduction techniques were used: -Automated exposure control. -Adjustment of the mA and/or KV according to patient's size. -Use of iterative reconstruction technique COMPARISON: None available FINDINGS: Mild diffuse cerebral and cerebellar atrophy is present. There is proportionate dilatation of the v entricular system and sulci in a symmetric fashion. There is prominence of the extraaxial spaces sec ondary to atrophy. There is no evidence of intracranial hemorrhage, mass effect or midline shift. Th e small cluster of cysts adjacent to the fourth ventricle in the medial aspect of the right cerebell ar hemisphere have not changed in the interval. A small cystic area in the right inferior temporal l obe/inferior right basal ganglia region is unchanged. No abnormal intra-axial or extra-axial fluid c ollections are seen. The density of the brain is normal and the kim/white matter differentiation i s well preserved. Mild patchy diffuse deep white matter microangiopathic ischemic change is seen. The osseous structures and visualized paranasal sinuses are unremarkable. IMPRESSION: 1. No evidence of acute intracranial pathology. 2. Age-related volume loss and small vessel ischemic changes. 3. No significant change in small cystic areas adjacent to the fourth ventricle and the posterior in ferior right temporal lobe/inferior right basal ganglia. These likely represent dilated perivascular spaces. RPTAT: [facility] Physician Jeannie Date Time Electronically viewed and signed by Physician Jeannie on 02/24/2017 17:05 NIESHA/
--- NOTE | 2017-02-24 18:15 | ERD ---
ER Documentation Chief Complaint Date/Time DATE: 02/24/17 TIME: 18:11 Chief Complaint Complains of left ear pain x 1 week seen 2 days ago no relief HPI 61-year-old female patient with a past medical history of diabetes, hypertension , colon cancer presents to the ED complaining of right ear ringing as well as dizziness. States that the dizziness is worse with movement. States that she has some nausea but denies any vomiting. Reports that she was seen here yesterday for similar symptoms. States that she no longer takes chemo. Denies any chest pain, shortness of breath, abdominal pain, flank pain, dysuria, urgency, frequency, dysuria. Denies any head or neck injuries. Denies any loss of consciousness. Denies any seizures. ROS All systems reviewed and are negative except as per history of present illness. Medications Home Meds Active Scripts Ondansetron (Ondansetron Odt) 4 Mg Tab.rapdis, 4 MG PO Q6H Y for NAUSEA AND/OR VOMITING, #30 TAB Prov:NISHI HUGHES MD 02/22/17 Carbamide Peroxide* (Debrox*) 6.5% - 15 Ml Drops, 10 DROP RIGHT EAR BID, #1 BOTTLE Prov:NISHI HUGHES MD 02/22/17 Reported Medications Calcium Carbonate/Vitamin D3 (OYSTER SHELL 500 MG + VIT D TB) 1 Each Tablet, 1 EACH PO BID, TAB 02/22/17 Calcium Carbonate/Vitamin D3 (OYSTER SHELL 500 MG + VIT D TB) 1 Each Tablet, 1 EACH PO BID, TAB 02/22/17 Atenolol* (Atenolol*) 100 Mg Tablet, 100 MG PO DAILY, #30 TAB 12/30/16 Hydrochlorothiazide* (Hydrochlorothiazide*) 25 Mg Tab, 25 MG PO DAILY, #30 TAB 01/26/16 Losartan Potassium* (Losartan Potassium*) 50 Mg Tablet, 50 MG PO DAILY, TAB 03/12/15 Metformin Hcl* (Metformin Hcl*) 1,000 Mg Tablet, 1000 MG PO BID, TAB 03/12/15 Aspirin* (Aspirin* EC) 81 Mg Tablet.dr, 81 MG PO DAILY, TAB 03/12/15 Discontinued Reported Medications Dicyclomine Hcl* (Bentyl*) 20 Mg Tablet, 20 MG PO QID Y for PAIN, TAB 01/26/16 Allergies Allergies: Coded Allergies: No Known Drug Allergy (Unverified Allergy, Unknown, 12/30/16) ADVERSE REACTION TO A CHEMO DRUG IN PAST- COULD NOT REMEMBER WHICH MEDICATION PMhx/Soc History of Surgery: Yes (Colon resection 2014) Anesthesia Reaction: No Hx Neurological Disorder: Yes (Stroke 06/2016; neuropathy) Hx Respiratory Disorders: No Hx Cardiac Disorders: Yes (Hypertension) Hx Psychiatric Problems: No Hx Miscellaneous Medical Probl: Yes (Stroke 06/2016, dm) Hx Alcohol Use: No Hx Substance Use: No Hx Tobacco Use: No Smoking Status: Never smoker Physical Exam Vitals Vital Signs Date Time Temp Pulse Resp B/P Pulse Ox O2 Delivery O2 Flow Rate FiO2 02/24/17 18:25 97.7 54 16 136/61 97 Room Air 02/24/17 13:30 98.8 66 20 128/83 99 Physical Exam Const: Cde-hec-pkwishswg, well-nourished. In no acute distress. Head: Atraumatic, normocephalic Eyes: Normal Conjunctiva without injection. No purulent discharge. PERRLA. EOMI ENT: Normal external ear. Ear canal without erythema. Tympanic membrane pearly kim without effusion or bulging. Nasal canal clear with normal turbinates. Moist oropharynx without tonsillar exudates. Non-erythematous pharynx. Uvula midline. No drooling. No trismus. Neck: No cervical midline tenderness. Full range of motion. No meningismus. No cervical lymphadenopathy. No JVD. Resp: Clear to auscultation bilaterally. No wheezing, rhonchi, rales, or crackles. No accessory muscle use. No retractions. Cardio: Regular rate and rhythm. No murmurs, rubs or gallops. Abd: Soft, non tender, non distended. Normal bowel sounds. No palpable masses. No rebound tenderness. No guarding. Negative McBurney's Point. Negative Velasquez's Sign. Skin: Normal skin turgor. No petechiae or rashes Back: No midline tenderness. No CVA tenderness. Ext: No cyanosis, or edema. Distal pulses intact bilaterally. Neur: Awake and alert. Normal gait. Normal coordination. Cranial Nerves II- VII intact. Normal finger to nose. Muscle strength 5/5. Sensation intact. Psych: Normal Mood and Affect Results 24 hrs Current Medications Medications (Trade) Dose Ordered Sig/Ninfa Route PRN Reason Start Time Stop Time Status Last Admin Dose Admin Meclizine HCl (Antivert) 25 mg ONCE ONCE PO 02/24/17 15:30 02/24/17 15:31 DC 02/24/17 16:14 Ondansetron HCl (Zofran Odt) 4 mg ONCE STAT ODT 02/24/17 15:17 02/24/17 15:19 DC 02/24/17 16:14 Procedures/MDM 61-year-old female patient with a past medical history of colon cancer, diabetes , hypertension presents to the ED complaining of dizziness, right ear ringing started 5 days ago. Patient is afebrile and nontoxic-appearing. Patient has normal vital signs. Case was discussed with my supervising physician, Dr. Hughes who stated that we can proceed with ordering a CT of the brain without contrast. Patient was also given Zofran, meclizine here in the ED with improvement of her nausea but still felt slightly dizzy. PROCEDURE: CT Brain without contrast. CLINICAL INDICATION: Dizziness. TECHNIQUE: A CT of the brain was performed on a multidetector CT scanner utilizing axial sections from the skull base through the vertex without contrast. Images were reviewed on a high-resolution PACS workstation. Exam CTDI = 43.68 mGy and the DLP = 630.2 mGy-cm. One or the following dose reduction techniques were used: -Automated exposure control. -Adjustment of the mA and/or KV according to patient's size. -Use of iterative reconstruction technique COMPARISON: None available FINDINGS: Mild diffuse cerebral and cerebellar atrophy is present. There is proportionate dilatation of the ventricular system and sulci in a symmetric fashion. There is prominence of the extraaxial spaces secondary to atrophy. There is no evidence of intracranial hemorrhage, mass effect or midline shift. The small cluster of cysts adjacent to the fourth ventricle in the medial aspect of the right cerebellar hemisphere have not changed in the interval. A small cystic area in the right inferior temporal lobe/inferior right basal ganglia region is unchanged. No abnormal intra-axial or extra-axial fluid collections are seen. The density of the brain is normal and the kim/white matter differentiation is well preserved. Mild patchy diffuse deep white matter microangiopathic ischemic change is seen. The osseous structures and visualized paranasal sinuses are unremarkable. IMPRESSION: 1. No evidence of acute intracranial pathology. 2. Age-related volume loss and small vessel ischemic changes. 3. No significant change in small cystic areas adjacent to the fourth ventricle and the posterior inferior right temporal lobe/inferior right basal ganglia. These likely represent dilated perivascular spaces. Differentials include benign positional vertigo. Low suspicion for cavernous sinus thrombosis, carotid dissection, aspirin toxicity, intracranial bleed, mastoiditis, malignancy, subarachnoid hemorrhage, acute glaucoma, meningitis, TIA, stroke, subdural hematoma, epidural hematoma, or other emergent conditions. Low suspicion for acute myocardial infarction, pneumothorax, pneumonia, cardiac tamponade, pulmonary embolism, pleural effusion, AAA, aortic dissection, Boerhaave's syndrome, cardiac dysrhythmias,meningitis, intracranial bleed, seizure, stroke, TIA or other emergent conditions. This case was discussed with Dr. Hughes who agreed with the management and discharge plan. Patient was seen here yesterday and had a full work out with no emergent conditions found. Discharge medications: Continue taking Zofran as needed Follow up with primary care physician in 1-2 days for a referral to see an ears nose throat specialist. Instructed patient to return to the ED sooner for any worsening symptoms. Patient's questions were answered. Patient understood and agreed with discharge plan. Patient discharged stable. Departure Diagnosis: Primary Impression: Dizziness Additional Impressions: Ringing in right ear Nausea and vomiting Vomiting type: unspecified Vomiting Intractability: unspecified Qualified Code: R11.2 - Nausea and vomiting, intractability of vomiting not specified, unspecified vomiting type Patient Instructions: Tinnitus (Ringing in the Ears), Nausea and Vomiting-Adult , Dizziness, Unk Cause Referrals: VEL MARS MD,ANTONIA ALONSO,KRYSTAL MAC MD, MD [facility] YOU HAVE RECEIVED A MEDICAL SCREENING EXAM AND THE RESULTS INDICATE THAT YOU DO NOT HAVE A CONDITION THAT REQUIRES URGENT TREATMENT IN THE EMERGENCY DEPARTMENT. FURTHER EVALUATION AND TREATMENT OF YOUR CONDITION CAN WAIT UNTIL YOU ARE SEEN IN YOUR DOCTORS OFFICE WITHIN THE NEXT 1-2 DAYS. IT IS YOUR RESPONSIBILITY TO MAKE AN APPOINTMENT FOR FOLOW-UP CARE. IF YOU HAVE A PRIMARY DOCTOR --you should call your primary doctor and schedule an appointment IF YOU DO NOT HAVE A PRIMARY DOCTOR YOU CAN CALL OUR PHYSICIAN REFERRAL HOTLINE AT IF YOU CAN NOT AFFORD TO SEE A PHYSICIAN YOU CAN CHOSE FROM THE FOLLOWING [facility] [address] [facility] [address] [facility] [address] [facility] [address] [facility] [address] [facility]. [facility] [address] [facility]. [facility] YOU HAVE RECEIVED A MEDICAL SCREENING EXAM AND THE RESULTS INDICATE THAT YOU DO NOT HAVE A CONDITION THAT REQUIRES URGENT TREATMENT IN THE EMERGENCY DEPARTMENT. FURTHER EVALUATION AND TREATMENT OF YOUR CONDITION CAN WAIT UNTIL YOU ARE SEEN IN YOUR DOCTORS OFFICE WITHIN THE NEXT 1-2 DAYS. IT IS YOUR RESPONSIBILITY TO MAKE AN APPOINTMENT FOR FOLOW-UP CARE. IF YOU HAVE A PRIMARY DOCTOR --you should call your primary doctor and schedule and appointment IF YOU DO NOT HAVE A PRIMARY DOCTOR YOU CAN CALL OUR PHYSICIAN REFERRAL HOTLINE AT . IF YOU CAN NOT AFFORD TO SEE A PHYSICIAN YOU CAN CHOSE FROM THE FOLLOWING [facility] INSTITUTIONS: [facility] [address] [place] [address] [facility] [address] [place] [address] [facility] + [facility] [address] [place] [address] [facility] URGENT CARE/SPECIALTIES Additional Instructions: Continue taking zofran as needed for nausea and vomiting. Avoid any quick movements that make dizziness worse. FOLLOW UP WITH YOUR PRIMARY CARE PHYSICIAN TOMORROW for a referral to an ears nose throat specialist. Return to this facility if you are not improving as expected. GISELA ROJAS PA-C Feb 24, 2017 18:15
[2017-02-24 18:25] VITALS: BP 136/61; PULSE 54; RESP 16; TEMP 97.7
== END 2017-02-24 18:27 | disposition home or self-care (01) ==
LOC: FTE 13:24
DX: R42 Dizziness and giddiness (principal); H93.11 Tinnitus, right ear; R11.2 Nausea with vomiting, unspecified; E11.9 Type 2 diabetes mellitus without complications; I10 Essential (primary) hypertension; Z79.82 Long term (current) use of aspirin; Z79.84 Long term (current) use of oral hypoglycemic drugs; Z85.038 Personal history of other malignant neoplasm of large intestine; Z86.73 Personal history of transient ischemic attack (TIA), and cerebral infarction without residual deficits
CPT/HCPCS: 70450; Z7502; Z7610

== ENCOUNTER 2017-03-23 15:00 | Emergency (ER) | payer OTHER ==
[~2017-03-23] VITALS: Wt 77.0 kg
[2017-03-23] MEDS ORDERED: KETOROLAC 30 MG INJ IM STA (20:03)
[2017-03-23] MEDS ORDERED: IBUP400T22 PO (20:23)
[2017-03-23] MEDS ORDERED: CYCL-319 PO (20:23)
[2017-03-23] MEDS ORDERED: HYDR-906 PO (20:23)
--- NOTE | 2017-03-23 20:27 | ERD ---
ER Documentation Chief Complaint Date/Time DATE: 03/23/17 TIME: 20:24 Chief Complaint r. side neck pain HPI 61-year-old female presents here to emergency department for complaints of right sided neck pain that started today after waking up. Patient describes the pain as sharp pain, 6/10 scale, as was upon movement. Complaints of stiffness on the right side of the neck. Patient denies any numbness or tingling. Patient denies any fever or chills. ROS All systems reviewed and are negative except as per history of present illness. Medications Home Meds Active Scripts Hydrocodone/Acetaminophen ([place] 5-325 Tablet) 1 Each Tablet, 1 TAB PO Q6H Y for SEVERE PAIN LEVEL 7-10, #20 TAB Prov:DEV ADAM NP 03/23/17 Ibuprofen* (Motrin*) 400 Mg Tab, 400 MG PO Q6H Y for PAIN AND OR ELEVATED TEMP, #30 TAB Prov:DEV ADAM NP 03/23/17 Cyclobenzaprine Hcl* (Cyclobenzaprine Hcl*) 10 Mg Tablet, 10 MG PO TID, #15 TAB Prov:DEV ADAM NP 03/23/17 Ondansetron (Ondansetron Odt) 4 Mg Tab.rapdis, 4 MG PO Q6H Y for NAUSEA AND/OR VOMITING, #30 TAB Prov:NISHI HUGHES MD 02/22/17 Carbamide Peroxide* (Debrox*) 6.5% - 15 Ml Drops, 10 DROP RIGHT EAR BID, #1 BOTTLE Prov:NISHI HUGHES MD 02/22/17 Reported Medications Calcium Carbonate/Vitamin D3 (OYSTER SHELL 500 MG + VIT D TB) 1 Each Tablet, 1 EACH PO BID, TAB 02/22/17 Calcium Carbonate/Vitamin D3 (OYSTER SHELL 500 MG + VIT D TB) 1 Each Tablet, 1 EACH PO BID, TAB 02/22/17 Atenolol* (Atenolol*) 100 Mg Tablet, 100 MG PO DAILY, #30 TAB 12/30/16 Hydrochlorothiazide* (Hydrochlorothiazide*) 25 Mg Tab, 25 MG PO DAILY, #30 TAB 01/26/16 Losartan Potassium* (Losartan Potassium*) 50 Mg Tablet, 50 MG PO DAILY, TAB 03/12/15 Metformin Hcl* (Metformin Hcl*) 1,000 Mg Tablet, 1000 MG PO BID, TAB 03/12/15 Aspirin* (Aspirin* EC) 81 Mg Tablet.dr, 81 MG PO DAILY, TAB 03/12/15 Allergies Allergies: Coded Allergies: No Known Drug Allergy (Unverified Allergy, Unknown, 12/30/16) ADVERSE REACTION TO A CHEMO DRUG IN PAST- COULD NOT REMEMBER WHICH MEDICATION PMhx/Soc History of Surgery: Yes (Colon Resection 2015,Oophorectomy,Tonsillectomy) Anesthesia Reaction: No Hx Neurological Disorder: Yes (CVA 2017,Neuropathy) Hx Respiratory Disorders: No Hx Cardiac Disorders: Yes (HTN) Hx Psychiatric Problems: No Hx Miscellaneous Medical Probl: Yes (IDDM,Colon CA) Hx Alcohol Use: No Hx Substance Use: No Hx Tobacco Use: No Smoking Status: Never smoker FmHx Family History: No coronary disease, No diabetes, No other Physical Exam Vitals Vital Signs Date Time Temp Pulse Resp B/P Pulse Ox O2 Delivery O2 Flow Rate FiO2 03/23/17 15:18 98.5 66 20 128/76 95 Physical Exam GENERAL: The patient is well developed and appropriate for usual state of health, in no apparent distress. CHEST: Clear to auscultation bilaterally. There are no rales, wheezes or rhonchi. HEART: Regular rate and rhythm. No murmurs, clicks, rubs or gallops. No S3 or S4. ABDOMEN: Soft, nontender and nondistended. Good bowel sounds. No rebound or guarding. No gross peritonitis. No gross organomegaly or masses. No Velasquez sign or McBurney point tenderness. BACK: No midline or flank tenderness. Muscle spasms noted in the right paraspinal aspect of the cervical spine, able to do full range of motion without restriction. EXTREMITIES: Equal pulses bilaterally. There is no peripheral clubbing, cyanosis or edema. No focal swelling or erythema. Full range of motion. Grossly neurovascularly intact. NEURO: Alert and oriented. Cranial nerves 2-12 intact. Motor strength in all 4 extremities with 5/5 strength. Sensation grossly intact. Normal speech and gait. SKIN: There is no apparent rash or petechia. The skin is warm and dry. HEMATOLOGIC AND LYMPHATIC: There is no evidence of excessive bruising or lymphedema. No gross cervical, axillary, or inguinal lymphadenopathy. Results 24 hrs Current Medications Medications (Trade) Dose Ordered Sig/Ninfa Route PRN Reason Start Time Stop Time Status Last Admin Dose Admin Ketorolac Tromethamine (Toradol) 30 mg ONCE STAT IM 03/23/17 20:03 03/23/17 20:04 DC 03/23/17 20:12 Diazepam (Valium) 5 mg ONCE ONCE PO 03/23/17 20:30 03/23/17 20:31 03/23/17 20:11 Patient was given medication for pain here in emergency department, after treatment, patient verbalized feeling much better. Patient's pain is improved. Valium was given for muscle spasms. Procedures/MDM Medical Decision Making: Patient's pain is most likely consistent with a neck strain. There is no suspicion for neurovascular compromise. Patient has intact sensation and circulation of the affected extremity and distal extremities no symptoms of any acute bacterial infection,.There is low suspicion for septic arthritis. Patient does not have any fever. No symptoms of any aortic dissection or aortic aneurysm. Radiology exam not indicated at this time. Disposition: Home. Patient is given prescription for ibuprofen for mild to moderate pain, [place] for severe pain, Flexeril for muscle spasm. Patient was advised to avoid heavy lifting , apply warm compresses on affected area. Patient was advised that if symptoms are worse, numbness, tingling, high fever, unable to move joint, worsening symptoms, to return to emergency department immediately. Otherwise, patient is advised to follow up with the primary care doctor in 5-7 days for reevaluation of symptoms. Disclaimer: Inadvertent spelling and grammatical errors are likely due to EHR/ dictation software use and do not reflect on the overall quality of patient care. Also, please note that the electronic time recorded on this note does not necessarily reflect the actual time of the patient encounter. Departure Diagnosis: Primary Impression: Neck strain Encounter type: initial encounter Qualified Code: S16.1XXA - Strain of neck muscle, initial encounter Condition: Stable Patient Instructions: Neck Sprain/Strain DEV ADAM NP Mar 23, 2017 20:27
[2017-03-23] MEDS ORDERED: DIAZEPAM 5 MG TAB PO ONE (20:30)
== END 2017-03-23 20:30 | disposition home or self-care (01) ==
LOC: FTE 15:00
DX: S16.1XXA Strain of muscle, fascia and tendon at neck level, initial encounter (principal); I10 Essential (primary) hypertension; E11.9 Type 2 diabetes mellitus without complications; X58.XXXA Exposure to other specified factors, initial encounter; Y92.9 Unspecified place or not applicable; Z79.82 Long term (current) use of aspirin; Z85.038 Personal history of other malignant neoplasm of large intestine; Z79.84 Long term (current) use of oral hypoglycemic drugs
CPT/HCPCS: 96372; J1885; Z7502; Z7610

== ENCOUNTER 2017-05-11 06:00 | Day surgery (SDC) | payer OTHER ==
[~2017-05-11] VITALS: Ht 154.9 cm; Wt 76.4 kg
[2017-05-11] VITALS (16 sets, daily range): BP systolic 83–121; BP diastolic 51–69; PULSE 16–62; RESP 10–28; Ht 154.9 cm; Wt 76.4 kg
[~2017-05-11 06:00] MED LIST changes: +CYCL-319 PO; +HYDR-906 PO; +IBUP400T22 PO
[2017-05-11] MEDS ORDERED: METF500T4 PO (07:05)
[2017-05-11] MEDS ORDERED: MULT-902 PO (07:06)
--- NOTE | 2017-05-11 07:36 | RADRPT ---
PROCEDURE: XR Chest. CLINICAL INDICATION: Preoperative TECHNIQUE: Single frontal view of the chest was obtained. COMPARISON: CR CHEST 08/22/2016 FINDINGS: There is mild cardiomegaly. The thoracic aorta is calcified. There is no focal infiltrate. There is mild left lower lobe linear atelectasis There is no pleural effusion or pneumothorax. RPTAT: AA IMPRESSION: Mild left lower lobe linear atelectasis. Mild cardiomegaly. Calcified aorta consistent with atherosclerotic disease. .Eliel Villatoro MD, Date Time Electronically viewed and signed by .Eliel Villatoro MD, on 05/11/2017 07:36 .S/
[2017-05-11 07:55] LABS: BASOPHIL # 0.1 10^3/ul (0.0-0.1); BASOPHILS % 1.1 % (0.0-2.0); EOSINOPHILS # 0.2 10^3/ul (0.0-0.5); EOSINOPHILS % 2.7 % (0.0-7.0); HEMATOCRIT 44.8 % (37.0-47.0); HEMOGLOBIN 15.2 g/dl (12.0-16.0); LYMPHOCYTES # 3.4 10^3/ul (0.8-2.9); LYMPHOCYTES % 37.4 % (15.0-51.0); MEAN CORPUSCULAR HEMOGLOBIN 30.8 pg (29.0-33.0); MEAN CORPUSCULAR HGB CONC 33.9 g/dl (32.0-37.0); MEAN CORPUSCULAR VOLUME 90.9 fl (82.0-101.0); MEAN PLATELET VOLUME 10.1 fl (7.4-10.4); MONOCYTE # 1.1 10^3/ul (0.3-0.9); MONOCYTES % 12.6 % (0.0-11.0); NEUTROPHIL # 4.2 10^3/ul (1.6-7.5); PLATELET COUNT 248 10^3/UL (140-415); RED BLOOD COUNT 4.93 10^6/ul (4.20-5.40); RED CELL DISTRIBUTION WIDTH 12.3 % (11.5-14.5)
[2017-05-11] MEDS ORDERED: LIDOCAINE 1% (MDV) 20 ML INJ ONE (08:12)
[2017-05-11] MEDS ORDERED: NITROGLYCERIN (IC) 100 MCG/ML INJ ONE (08:13)
[2017-05-11] MEDS ORDERED: VERAPAMIL 5 MG INJ ONE (08:13)
[2017-05-11] MEDS ORDERED: IODIXANOL LOCM 100 ML BTL ONE (08:13)
[2017-05-11] MEDS ORDERED: HEPARIN 1000 UNITS/ML 10 ML INJ ONE (08:14)
[2017-05-11 08:17] LABS: CALCIUM 9.6 mg/dl (8.4-10.2); CREATININE 0.79 mg/dl (0.44-1.00); POTASSIUM 4.5 mmol/L (3.5-5.1)
[2017-05-11 08:26] LABS: INR 1.02; PROTIME 13.5 Sec (11.9-14.9); PT RATIO 1.1
[2017-05-11 08:27] LABS: PARTIAL THROMBOPLASTIN TIME 31.6 Sec (25.0-35.0)
[2017-05-11] MEDS ORDERED: DIPHENHYDRAMINE 50 MG CAP PO SCH (08:30)
[2017-05-11] MEDS ORDERED: FAMOTIDINE 20 MG TAB PO SCH (08:30)
[2017-05-11] MEDS ORDERED: SOD CHLORIDE 0.45% 1,000 ML IV SCH (08:30)
[2017-05-11] MEDS ORDERED: DIAZEPAM 5 MG TAB PO SCH (08:30)
[2017-05-11] MEDS ORDERED: FENTAnyl 50 MCG/ML VIAL ONE (08:31)
[2017-05-11] MEDS ORDERED: MIDAZOLAM 1 MG/ML 2 ML INJ ONE (08:31)
[2017-05-11] MEDS ORDERED: SOD CHLORIDE 0.9% 1,000 ML IV SCH (10:15)
--- NOTE | 2017-05-11 10:20 | SIPON ---
Date/Time of Note Date/Time of Note DATE: 05/11/17 TIME: 10:18 Operative Report Preoperative Diagnosis 1.Chest pain 2.abnl mpi Postoperative Diagnosis 1.Non-obstructive cad Operation/Procedure Performed 1.[facility] Surgeon see signature line or assistant 1.Angineh Anesthesia: moderate sedation Estimated blood loss: minimal Transfusion Required none Specimen NA Grafts/Implants none Complications none MARJAN KEBEDE May 11, 2017 10:20
[2017-05-11] MEDS ORDERED: ONDANSETRON 4 MG INJ IV PRN (10:30)
[2017-05-11] MEDS ORDERED: AL HYDROX/MG HYDROX/SIMETH 30 ML CUP PO PRN (10:30)
[2017-05-11] MEDS ORDERED: ACETAMINOPHEN 325 MG TAB PO PRN (10:30)
[2017-05-11] MEDS ORDERED: morphine 2 MG INJ IV PRN (10:30)
--- NOTE | 2017-05-11 11:49 | CARRPT ---
DATE OF PROCEDURE: 05/11/2017 TYPE OF PROCEDURE: 1. Left heart catheterization. 2. Coronary angiography. 3. Left ventriculogram. ATTENDING PHYSICIAN: Marjan Flores MD. REFERRING PHYSICIAN: Cristi Brady MD. INDICATIONS: Chest pain with anterior ischemia, remarkable for cardiovascular events. ANESTHESIA: Local. BRIEF HISTORY: Ms. Parker is a 62-year-old female with history of hypertension, diabetes mellitus w ho initially presented with complaints of substernal chest pain. The patient was placed on medical therapy, continued to have chest pain and underwent a cardiac stress test revealing anterior ischemi a, has now been referred for left heart catheterization to assess for the possibility of significant obstructive coronary artery disease lending to the symptoms of chest pain and positive stress test findings. PROCEDURE: After informed consent was obtained, the patient was brought to the [facility] cardiac catheterization lab where her right radial area was prepped and draped in the usual sterile fashion, 2% lidocaine was infiltrated into the right radial area in order to achieve adequa te anesthesia. Using the modified Seldinger technique, the radial artery was cannulated and a 6-[facility] arterial sheath was placed. A 6-Pakistani JL3.5 catheter was used to cannulate the left main coron roro ostium. With contrast injection, multiple views of the left coronary arterial systems were obta ined. The JL3.5 was removed over a guidewire and a JR4 was used to cannulate the right coronary art erial ostium. With contrast injection, multiple views of the right coronary arterial system obtaine d. JR4 was removed over a guidewire and a 6-Pakistani pigtail was passed down the ascending aorta into the LV. Left ventricular end-diastolic pressure was measured. Using a power injector, 20 mL contr ast was injected and has pulled back across the aortic valve to assess for significant gradient, whi ch there was not and removed. Subsequently, this completed the procedure. The patient's sheath was removed. TR band was applied. There were no noted complications. 1. Coronary angiography. Right coronary artery proximally is a very large vessel 4 mm, 20% stenosi s in its proximal portion. The remainder of the right coronary artery is free of significant focal stenoses. It was a dominant vessel and gives off a 3 mm PDA and a 3 mm posterolateral branch, which travels a long distance to the other portion of the heart and has no significant focal stenoses. T he left main, proximally, is a 4 mm vessel without significant stenoses. LAD proximally is a 3.5 m m vessel and shortly after takeoff of diagonal has approximately a 40% stenosis. The remainder of L AD thereafter is free of significant focal stenosis. The proximal branching diagonal is a 2 mm vess el with an ostial 50% to 60% stenosis. The circumflex is a 2 mm vessel and has no significant focal stenoses. 2. Left ventriculogram revealed a preserved left ventricular ejection fraction of 60% to 65%. Lef t ventricular end-diastolic pressure 17. No significant aortic stenosis by gradient. TOTAL FLUOROSCOPY TIME: 4 minutes. TOTAL CONTRAST: 70 mL. IMPRESSION: 1. Mild to moderate nonobstructive coronary artery disease. 2. Preserved left ventricular systolic function. 3. High normal left heart filling pressure. 4. No significant aortic stenosis by gradient. RECOMMENDATIONS: In light of the procedure findings at this time would: 1. Maximize medical management. 2. Aggressive risk factor reduction. 3. The patient to be readmitted to same day surgery center for post-cath observation and continued management of presenting symptoms with discharge later this afternoon. Dictated By: MARJAN SCHERER/MAIA Conf#: [id number] DID#: [id number]
--- NOTE | 2017-05-12 13:16 | RADRPT ---
Vent Rate: 56 bpm RR Interval: 0 msec [place] Interval: 138 msec QRS Duration: 80 msec QT Interval: 458 msec QTC Interval: 441 msec P-R-T [place]: 64 - 63 - 49 degrees Sinus bradycardia Otherwise normal ECG Electronically Signed By: Justin Alvarado [id number]
== END 2017-05-11 15:10 | disposition home or self-care (01) ==
LOC: SDS 06:00
PROVIDERS: ATTEND Internal Medicine
DX: I25.10 Atherosclerotic heart disease of native coronary artery without angina pectoris (principal); E11.9 Type 2 diabetes mellitus without complications; I10 Essential (primary) hypertension
CPT/HCPCS: 71010; 80048; 80061; 82962; 85025; 85610; 85730; 93005; 93458; C1887; J1644; J2250; J3010; Q9967; Z7610

== ENCOUNTER 2017-10-24 02:40 | Inpatient (IN) | END 2017-10-27 10:45 | disposition home or self-care (01) | DRG 390 ==